=== PATIENT | male | born 1950 | race Caucasian/White ===

== ENCOUNTER 2016-10-28 15:34 | Inpatient (IN) | payer MEDICARE, OTHER ==
[2016-10-28] MEDS ORDERED: IPRATROPIUM 0.5 MG/2.5 ML NEBU INHALATION STA (15:49)
[2016-10-28] MEDS ORDERED: ALBUTEROL NEBULIZED 2.5 MG/3 ML INHALATION STA (15:49)
[2016-10-28] MEDS ORDERED: TERBUTALINE 1 MG/ML VIAL SQ STA (15:59)
[2016-10-28] MEDS ORDERED: methylPREDNISolone SOD SUCCI 125 MG/2 ML VIAL IV STA (15:59)
--- NOTE | 2016-10-28 16:07 | ED ---
General Adult HPI - General Chief complaint: Shortness of Breath Stated complaint: RICARDA/Fever-sent by Time Seen by Provider: 10/28/16 15:50 Source: patient, family, RN notes reviewed, old records reviewed Mode of arrival: wheelchair Limitations: no limitations - History of Present Illness Initial comments: Chief complaint and history of present illness 14-year-old male sent emergency room from [facility] because of severe shortness of breath. It isn't progressively worse for the past 4 days. The patient's on-again off-again problems including pneumonia several times over the past 2 months. Patient complains of pain to the left lower lateral flank area. - Related Data Home Medications Medication Instructions Recorded Confirmed Albuterol Nebulized [Ventolin 2.5 mg INHALATION RT-Q4H PRN 10/28/16 10/28/16 Nebulized] Amitriptyline HCl [Elavil] 25 mg PO HS 10/28/16 10/28/16 Budesonide/Formoterol Fumarate 2 puff INHALATION RT-BID 10/28/16 10/28/16 [Symbicort 160-4.5 Mcg Inhaler] Fluticasone Nasal [place] [Flonase 1 spray EA NOSTRIL DAILY PRN 10/28/16 10/28/16 Nasal [place]] Gluc/[place]-MSM#1/C/Danyel/Naveed/Bor 1 tab PO DAILY 10/28/16 10/28/16 [Glucosamine-Chondroitin Tablet] HYDROcodone/APAP 10-325MG [[place] 2 tab PO TID PRN 10/28/16 10/28/16 10-325] Ipratropium/Albuterol Sulfate 1 puff INHALATION RT-QID PRN 10/28/16 10/28/16 [Combivent Respimat Inhaler] Levothyroxine Sodium [Synthroid] 200 mcg PO DAILY 10/28/16 10/28/16 Multivitamins, Thera [Multivitamin] 1 tab PO DAILY 10/28/16 10/28/16 [place]-3 Fatty Acids/Fish Oil [Fish 1 cap PO DAILY 10/28/16 10/28/16 Oil 1,000 mg Softgel] Omeprazole [PriLOSEC] 20 mg PO BID 10/28/16 10/28/16 Sertraline [Zoloft] 200 mg PO DAILY 10/28/16 10/28/16 amLODIPine [Norvasc] 5 mg PO DAILY 10/28/16 10/28/16 Allergies Allergy/AdvReac Type Severity Reaction Status Date / Time Sulfa (Sulfonamide Allergy Rash/Hives Verified 10/28/16 16:36 Antibiotics) tetracycline Allergy Anaphylaxis Verified 10/28/16 16:36 Review of Systems ROS Statement: Those systems with pertinent positive or pertinent negative responses have been documented in the HPI. Review of systems no complaint of headache or visual acuity changes no neck pain. He is short of breath breathing with pursed lips. Playing of pain to his left lower lateral chest area which started today. No abdominal pain no nausea no vomiting no neuro deficits. All systems reviewed. Past medical problems COPD, rheumatoid arthritis. Patient's ALLERGIES to sulfa. Family history not respiratory. Patient nonsmoker. Surgeries noncontributory at this time. ROS Other: All systems not noted in ROS Statement are negative. Past Medical History Past Medical History: COPD, Rheumatoid Arthritis (RA) History of Any Multi-Drug Resistant Organisms: None Reported Past Psychological History: No Psychological Hx Reported Smoking Status: Never smoker Past Alcohol Use History: None Reported Past Drug Use History: None Reported General Exam - General Exam Comments Initial Comments: General: The patient is awake and alert, in significant respiratory distress. Patient was given updrafts prior to leaving the [place] clinic earlier. Presents today with a low pulse ox. Breathing with pursed lips. Nonproductive cough. Denies fever at home. Extremely short of breath. Patient was immediately started on continuous updraft, given terbutaline subcu, IV steroids. Vital signs temp 99.5 pulse 11 respiratory rate 24 pulse ox 79% on room air. Up to 89% with O2. Blood pressure 123/66. Eye: Pupils are equal, round and reactive to light, extra-ocular movements are intact ; there is normal conjunctiva bilaterally. No signs of icterus. Ears, nose, mouth and throat: There are moist mucous membranes and no oral lesions. Neck: The neck is supple, there is no tenderness , no anterior cervical lymphadenopathy, no meningismus. No stiff neck. Cardiovascular: Tachycardic heart rate 101. No murmur, rub or gallop is appreciated. Respiratory: Presents short of breath, decreased air entry bilaterally. Faint wheezes appreciated. Updraft started immediately. Gastrointestinal: Soft, non-distended, non-tender abdomen without masses or organomegaly noted. There is no rebound or guarding present. No CVA tenderness. Bowel sounds are unremarkable. Back: Complains of pain to the left flank area. No evidence of any rash though early shingles was discussed. Musculoskeletal: Normal ROM, no tenderness, There is no pedal edema. There is no calf tenderness or swelling. Sensation intact. Neurological: CN II-XII intact, There are no obvious motor or sensory deficits. Coordination appears grossly intact. Speech is normal. Skin: Skin is warm and dry and no rashes or lesions are noted. Neurologically no focal or lateralizing findings Limitations: no limitations Course Vital Signs 10/28/16 10/28/16 10/28/16 15:37 15:51 16:06 Temperature 99.5 F Pulse Rate 101 H 105 H 107 H Respiratory 24 Rate Blood Pressure 123/66 O2 Sat by Pulse 79 L Oximetry 10/28/16 10/28/16 10/28/16 16:21 16:30 16:40 Temperature 98.2 F Pulse Rate 104 H 93 Respiratory 20 18 Rate Blood Pressure 141/76 O2 Sat by Pulse 96 Oximetry 10/28/16 10/28/16 17:09 17:37 Temperature 98.0 F Pulse Rate 111 H 108 H Respiratory 20 Rate Blood Pressure 121/66 O2 Sat by Pulse 92 L Oximetry EKG Findings - EKG Comments: EKG Findings:: EKG was done and reviewed at 1545 showing sinus tachycardia rate 104. No acute ST elevation no significant ischemic changes. CA interval is 146 QRS [address] QT [address] Coppola Medical Decision Making - Medical Decision Making Medical decision making; patient's white count is 9 hemoglobin 11 hematocrit of 36, INR 1.0, potassium 4.1, BUN 20 creatinine 0.89 with a GFR greater than 60. Glucose 118. X-ray of the chest was done AP and lateral view and reviewed by radiologist his impression is no evidence for infiltrate. No evidence for atelectasis. Heart size is stable. Mediastinal structures are stable and grossly unremarkable. No evidence for hilar prominence. Impression; no evidence for acute pulmonary disease. As read by Dr. Jj Patient was seen by Dr. grant, in emergency room patient be admitted his service with consultation from pulmonary services, Dr. Fried - Lab Data Result diagrams: 10/28/16 16:10 10/28/16 16:10 Lab Results 10/28/16 10/28/16 10/28/16 Range/Units 16:10 16:10 16:10 WBC 9.3 (3.8-10.6) k/uL RBC 3.84 L (4.30-5.90) m/uL Hgb 11.8 L (13.0-17.5) gm/dL Hct 36.0 L (39.0-53.0) % MCV 93.9 (80.0-100.0) fL MCH 30.8 (25.0-35.0) pg MCHC 32.8 (31.0-37.0) g/dL RDW 13.9 (11.5-15.5) % Plt Count 285 (150-450) k/uL Neutrophils % 75 % Lymphocytes % 15 % Monocytes % 7 % Eosinophils % 1 % Basophils % 1 % Neutrophils # 6.9 (1.3-7.7) k/uL Lymphocytes # 1.4 (1.0-4.8) k/uL Monocytes # 0.6 (0-1.0) k/uL Eosinophils # 0.1 (0-0.7) k/uL Basophils # 0.1 (0-0.2) k/uL PT (9.0-12.0) sec INR (<1.1) APTT (22.0-30.0) sec Sodium 136 L (137-145) mmol/L Potassium 4.1 (3.5-5.1) mmol/L Chloride 96 L (98-107) mmol/L Carbon Dioxide 27 (22-30) mmol/L Anion Gap 13 mmol/L BUN 20 (9-20) mg/dL Creatinine 0.89 (0.66-1.25) mg/dL Est GFR (MDRD) Af Amer >60 (>60 ml/min/1.73 sqM) Est GFR (MDRD) Non-Af >60 (>60 ml/min/1.73 sqM) Glucose 118 H (74-99) mg/dL Plasma Lactic Acid Prudencio 0.9 (0.7-2.0) mmol/L Calcium 9.0 (8.4-10.2) mg/dL Total Bilirubin 0.6 (0.2-1.3) mg/dL AST 23 (17-59) U/L ALT 30 (21-72) U/L Alkaline Phosphatase 67 (38-126) U/L Total Protein 7.2 (6.3-8.2) g/dL Albumin 4.1 (3.5-5.0) g/dL 10/28/16 Range/Units 16:10 WBC (3.8-10.6) k/uL RBC (4.30-5.90) m/uL Hgb (13.0-17.5) gm/dL Hct (39.0-53.0) % MCV (80.0-100.0) fL MCH (25.0-35.0) pg MCHC (31.0-37.0) g/dL RDW (11.5-15.5) % Plt Count (150-450) k/uL Neutrophils % % Lymphocytes % % Monocytes % % Eosinophils % % Basophils % % Neutrophils # (1.3-7.7) k/uL Lymphocytes # (1.0-4.8) k/uL Monocytes # (0-1.0) k/uL Eosinophils # (0-0.7) k/uL Basophils # (0-0.2) k/uL PT 10.4 (9.0-12.0) sec INR 1.0 (<1.1) APTT 26.1 (22.0-30.0) sec Sodium (137-145) mmol/L Potassium (3.5-5.1) mmol/L Chloride (98-107) mmol/L Carbon Dioxide (22-30) mmol/L Anion Gap mmol/L BUN (9-20) mg/dL Creatinine (0.66-1.25) mg/dL Est GFR (MDRD) Af Amer (>60 ml/min/1.73 sqM) Est GFR (MDRD) Non-Af (>60 ml/min/1.73 sqM) Glucose (74-99) mg/dL Plasma Lactic Acid Prudencio (0.7-2.0) mmol/L Calcium (8.4-10.2) mg/dL Total Bilirubin (0.2-1.3) mg/dL AST (17-59) U/L ALT (21-72) U/L Alkaline Phosphatase (38-126) U/L Total Protein (6.3-8.2) g/dL Albumin (3.5-5.0) g/dL Disposition Clinical Impression: Acute exacerbation of chronic obstructive pulmonary disease (COPD) Disposition: ADMITTED IP TO THIS HOSP Condition: Serious
[2016-10-28 16:19] LABS: Basophils # (A) 0.1 k/uL (0-0.2); Basophils % (A) 1 %; CH 31.6; CHCM 33.8; Eosinophils # (A) 0.1 k/uL (0-0.7); Eosinophils % (A) 1 %; HDW 3.14; HGB 11.8 gm/dL (13.0-17.5); Luc # (Auto) 0.13; Luc % (Auto) 1; Lymphocytes # (A) 1.4 k/uL (1.0-4.8); Lymphocytes % (A) 15 %; MCH 30.8 pg (25.0-35.0); MCHC 32.8 g/dL (31.0-37.0); MCV 93.9 fL (80.0-100.0); Monocytes # (A) 0.6 k/uL (0-1.0); Monocytes % (A) 7 %; Neutrophils # (A) 6.9 k/uL (1.3-7.7); Neutrophils % (A) 75 %; RBC 3.84 m/uL (4.30-5.90); RDW 13.9 % (11.5-15.5); WBC 9.3 k/uL (3.8-10.6); WBC (Perox) 9.91
[2016-10-28 16:26] LABS: ALT 30 U/L (21-72); AST 23 U/L (17-59); Alkaline Phosphatase 67 U/L (38-126); Anion Gap 13 mmol/L; Blood Urea Nitrogen 20 mg/dL (9-20); Carbon Dioxide 27 mmol/L (22-30); Chloride 96 mmol/L (98-107); Glucose 118 mg/dL (74-99); Non-African American GFR(MDRD) >60 (>60 ml/min/1.73 sqM); Potassium 4.1 mmol/L (3.5-5.1); Sodium 136 mmol/L (137-145); Total Bilirubin 0.6 mg/dL (0.2-1.3); Total Protein 7.2 g/dL (6.3-8.2)
[2016-10-28 16:30] LABS: Partial Thromboplastin Time 26.1 sec (22.0-30.0); Prothrombin Time 10.4 sec (9.0-12.0)
--- NOTE | 2016-10-28 17:46 | XR ---
EXAMINATION TYPE: XR chest 2V DATE OF EXAM: 10/28/2016 5:36 PM COMPARISON: 06/25/2014 HISTORY: Shortness of breath TECHNIQUE: Frontal and lateral views of the chest are obtained. FINDINGS: Scattered senescent parenchymal changes noted. Hyperinflation compatible with COPD. No evidence for infiltrate. No evidence for atelectasis. Heart size is stable. Mediastinal structures are stable and grossly unremarkable. No evidence for hilar prominence. Degenerative changes dorsal spine. IMPRESSION: 1. No evidence for acute pulmonary disease.
[2016-10-28] MEDS ORDERED: NALOXONE 0.4 MG/ML 1 ML VIAL IV PRN (18:38)
[2016-10-28] MEDS ORDERED: ACETAMINOPHEN TAB 325 MG TAB PO PRN (18:38)
[2016-10-28] MEDS ORDERED: FLUTICASONE 50MCG/SPRAY NASAL 16GM EA NOSTRIL PRN (18:43)
[2016-10-28] MEDS: HYDROcodone/APAP 10-325MG 1 EACH TAB PO PRN (19:06)
[2016-10-28] MEDS: SODIUM CHLORIDE 0.9% 1,000 ML IV SCH (19:07)
[2016-10-28 20:52] LABS: Appearance,Urine Clear (Clear); Bilirubin,Urine Negative (Negative); Glucose,Urine (UA) Negative (Negative); Ketones,Urine Trace (Negative); Leukocyte Esterase,Urine Negative (Negative); Nitrite,Urine Negative (Negative); Particle Count 942; Protein,Urine Trace (Negative); RBC,Urine 2 /hpf (0-5); Specific Gravity,Urine 1.006 (1.001-1.035); UA Billing (MACRO vs. MICRO) MICRO; Urobilinogen,Urine <2.0 mg/dL (<2.0); WBC,Urine <1 /hpf (0-5)
--- NOTE | 2016-10-28 22:24 | HP ---
DATE OF ADMISSION: 10/28/2016 Patient complaints of shortness of breath started about four days ago. The patient has been having ( ) episodes for a while. [facility] The patient was complaining of cough with yellowish sputum production. The patient denied any fever, chills. Denied any nausea, vomiting. The patient does use 2 liters of oxygen at home. The patient denied any dysuria nausea, the patient denied any nausea or vomiting. REVIEW OF SYSTEMS: CONSTITUTIONAL: No fever, no malaise, no fatigue. HEENT: No recent visual problems or hearing problems. Denied any sore throat. CARDIOVASCULAR: The patient denied any chest pain. The patient denied any orthopnea, PND, no palpitations, no syncope. PULMONARY: As described in history of present illness. GASTROINTESTINAL: No diarrhea, no nausea, no vomiting, no abdominal pain. Normoactive bowel sounds. NEUROLOGICAL: No headaches, no weakness, no numbness. HEMATOLOGICAL: Denies any bleeding or petechiae. GENITOURINARY: Denies any burning micturition, frequency, or urgency. MUSCULOSKELETAL/RHEUMATOLOGICAL: Denies any joint pain, swelling, or any muscle pain. ENDOCRINE: Denies any polyuria or polydipsia. The rest of the 14 point review of systems is negative. Home medications include: 1. ( ). 2. Budesonide. 3. Formoterol. 4. Hydrocodone/acetaminophen. 5. Levothyroxine. 6. Multivitamins. 7. ( ). 8. [place]-3 fatty acid. 9. Omeprazole. 10. Sertraline. 11. Amlodipine 5 mg. ALLERGIES: ALLERGIC TO SULFA DRUGS AND TETRACYCLINE. PAST MEDICAL HISTORY: Significant for rheumatoid arthritis, hypertension, chronic obstructive pulmonary disease, hypothyroidism. SOCIAL HISTORY: The patient does smoke. Patient only smoked one cigarette per day. Quit smoking last July 2016, since then he has been smoking one cigarette per day. Denied any alcohol abuse or any drug abuse. FAMILY HISTORY: Significant for hypertension. PHYSICAL EXAMINATION: VITAL SIGNS: Temperature 99.5, pulse of 105, respiratory rate of 24. Blood pressure is 123/66, saturating at 96% on 4 liters of O2 by nasal cannula. GENERAL: The patient is alert and oriented x3, not in any acute distress. Well developed, well nourished. HEENT: Pupils are round and equally reacting to light. EOMI. No scleral icterus. No conjunctival pallor. Normocephalic, atraumatic. No pharyngeal erythema. No thyromegaly. CARDIOVASCULAR: S1 and S2 present. No murmurs, rubs, or gallops. PULMONARY: Diffuse wheezing bilaterally. No crackles are appreciated. ( ) decreased air entry into bilateral lung payan. ABDOMEN: Soft, nontender, nondistended, normoactive bowel sounds. No palpable organomegaly. MUSCULOSKELETAL: No joint swelling or deformity. EXTREMITIES: No cyanosis, clubbing, or pedal edema. NEUROLOGICAL: Gross neurological examination did not reveal any focal deficits. SKIN: No rashes. LABORATORY DATA: CBC and comprehensive metabolic profile are abnormal for mildly low hemoglobin 11.8, no leukocytosis. Chest x-ray did not show any pneumonic process. ASSESSMENT AND PLAN: 1. Acute on chronic hypercapnic respiratory failure, secondary to chronic obstructive pulmonary disease exacerbation. The patient was started on ( ) treatment and I will start him on azithromycin for bronchitis. 2. Hypertension. Hold off on amlodipine because of his low normal blood pressures. 3. Hypothyroidism. 4. Depression. For above-mentioned chronic medical problems we will continue his home medications. Patient's primary care physician is Dr. Shashi Weller.
[2016-10-28] MEDS: AMITRIPTYLINE HCL 25 MG TAB PO SCH (22:37)
[2016-10-28] MEDS: AZITHROMYCIN 500 MG TAB PO SCH (22:37)
[2016-10-28] MEDS: SYMBICORT 160-4.5 MCG INHALER INHALATION SCH (23:15)
[2016-10-29] MEDS: methylPREDNISolone SOD SUCCI 125 MG/2 ML VIAL IV SCH ×5 (01:32→23:57)
[2016-10-29 03:00] VITALS: BMI 24.4
[2016-10-29] MEDS: LEVOTHYROXINE 100 MCG TAB PO SCH (06:26)
[2016-10-29 06:47] LABS: Glucose,Whole Blood 154 mg/dL (75-99)
[2016-10-29] MEDS: INSULIN LISPRO (humaLOG) 300 UNIT/3 ML VIAL SQ SCH ×4 (06:55→22:27)
[2016-10-29] MEDS: SERTRALINE 100 MG TAB PO SCH (07:42)
[2016-10-29] MEDS: IPRATROPIUM-ALBUTEROL 3 ML NEB INHALATION PRN ×2 (07:56→13:13)
[2016-10-29] MEDS: SYMBICORT 160-4.5 MCG INHALER INHALATION SCH ×2 (07:57→19:43)
[2016-10-29] MEDS: SODIUM CHLORIDE 0.9% 1,000 ML IV SCH ×2 (08:22→21:39)
[2016-10-29] MEDS ORDERED: amLODIPine 5 MG TAB PO SCH (09:00)
[2016-10-29] MEDS ORDERED: NON-FORMULARY DRUG (Gluc/Chon-Msm#1/C/Mang/Bos/Bor [Glucosamine-Chondroitin Tablet] 1 TAB) PO SCH (09:00)
[2016-10-29] MEDS ORDERED: PANTOPRAZOLE 40 MG/10 ML VIAL IV SCH (09:00)
[2016-10-29 12:15] LABS: Glucose,Whole Blood 118 mg/dL (75-99)
--- NOTE | 2016-10-29 14:22 | P.CNPUL ---
History of Present Illness Consult date: 10/29/16 Requesting physician: Jordan Rodriguez Reason for consult: dyspnea, COPD Chief complaint: Shortness of breath, cough, congestion History of present illness: This is a very pleasant 66-year-old gentleman who follows at the [facility] for his primary care needs. He has a history of oxygen dependent chronic obstructive pulmonary disease, gastroesophageal reflux disease, hypertension, hypothyroidism and rheumatoid arthritis. He did smoke for approximately 25 years but take quit in May 2016. He is maintained on Symbicort and albuterol in the outpatient setting. He had been having issues with shortness of breath, cough and congestion since around Thanksgiving time. He has been treated in the outpatient setting without significant improvement. He gets better for a while and then has a recurrence of this same loose productive cough. He was admitted here yesterday for the same. He is seen today in consultation on the selective care unit. He is awake and alert in no acute distress. His chest x-ray did not reveal any evidence of an acute pulmonary process. There is noted COPD. There is no leukocytosis. He has been afebrile. He is maintaining good O2 saturations in the mid 90s on room air. He states he is breathing easier today as compared to yesterday. He denies any chills or night sweats. He has a loose nonproductive cough. No hemoptysis. No recent weight loss. Review of Systems 14 point review of system was conducted. All negative other than as mentioned in HPI. Past Medical History Past Medical History: COPD, Hyperlipidemia, Rheumatoid Arthritis (RA) Additional Past Medical History / Comment(s): IBS (Aug 2016 diagnosed) History of Any Multi-Drug Resistant Organisms: None Reported Past Surgical History: Orthopedic Surgery Additional Past Surgical History / Comment(s): reconstruction of right ankle, carpal tunnel, shrapnel right leg Additional Past Anesthesia/Blood Transfusion Reaction / Comment(s): blood transfusion in [place] Past Psychological History: Anxiety, Depression, PTSD Smoking Status: Never smoker Past Alcohol Use History: None Reported Past Drug Use History: None Reported - Past Family History Father Family Medical History: No Reported History Medications and Allergies Home Medications Medication Instructions Recorded Confirmed Type Albuterol Nebulized [Ventolin 2.5 mg INHALATION RT-Q4H PRN 10/28/16 10/28/16 History Nebulized] Amitriptyline HCl [Elavil] 25 mg PO HS 10/28/16 10/28/16 History Budesonide/Formoterol Fumarate 2 puff INHALATION RT-BID 10/28/16 10/28/16 History [Symbicort 160-4.5 Mcg Inhaler] Fluticasone Nasal [place] [Flonase 1 spray EA NOSTRIL DAILY PRN 10/28/16 10/28/16 History Nasal [place]] Gluc/[place]-MSM#1/C/Danyel/Naveed/Bor 1 tab PO DAILY 10/28/16 10/28/16 History [Glucosamine-Chondroitin Tablet] HYDROcodone/APAP 10-325MG [[place] 2 tab PO TID PRN 10/28/16 10/28/16 History 10-325] Ipratropium/Albuterol Sulfate 1 puff INHALATION RT-QID PRN 10/28/16 10/28/16 History [Combivent Respimat Inhaler] Levothyroxine Sodium [Synthroid] 200 mcg PO DAILY 10/28/16 10/28/16 History Multivitamins, Thera [Multivitamin] 1 tab PO DAILY 10/28/16 10/28/16 History [place]-3 Fatty Acids/Fish Oil [Fish 1 cap PO DAILY 10/28/16 10/28/16 History Oil 1,000 mg Softgel] Omeprazole [PriLOSEC] 20 mg PO BID 10/28/16 10/28/16 History Sertraline [Zoloft] 200 mg PO DAILY 10/28/16 10/28/16 History amLODIPine [Norvasc] 5 mg PO DAILY 10/28/16 10/28/16 History Allergies Allergy/AdvReac Type Severity Reaction Status Date / Time Sulfa (Sulfonamide Allergy Rash/Hives Verified 10/28/16 16:36 Antibiotics) tetracycline Allergy Anaphylaxis Verified 10/28/16 16:36 Physical Exam Vitals: Vital Signs Temp Pulse Pulse Resp BP BP Pulse Ox 10/29/16 13:26 100 10/29/16 13:14 100 10/29/16 11:50 97.6 F 72 18 113/69 94 L 10/29/16 08:13 96 10/29/16 07:57 96 10/29/16 07:48 90 18 10/29/16 07:40 97 F L 90 18 114/80 93 L 10/29/16 02:42 97.0 F L 82 22 119/79 95 10/29/16 01:31 97.0 F L 73 18 130/83 95 10/28/16 22:38 75 18 117/70 94 L 10/28/16 20:40 97.6 F 89 18 109/60 93 L 10/28/16 19:09 92 18 110/59 92 L 10/28/16 18:45 97.9 F 92 18 113/65 93 L Intake and Output 10/28/16 10/29/16 10/29/16 22:59 06:59 14:59 Intake Total 240 Balance 240 Intake: Oral 240 Other: Weight 70.7 kg 70.7 kg Patient Weight 10/30/16 06:59 Weight 70.7 kg GENERAL EXAM: Alert, active, comfortable in no apparent distress. HEAD: Normocephalic. EYES: Normal reaction of pupils, equal size. NOSE: Clear with pink turbinates. THROAT: No erythema or exudates. NECK: No masses, no JVD. CHEST: No chest wall deformity. LUNGS: Equal air entry with faint end expiratory wheeze. Diminished. CVS: S1 and S2 normal with no audible murmurs, regular rhythm. ABDOMEN: No hepatosplenomegaly, normal bowel sounds, no guarding or rigidity. SPINE: No scoliosis or deformity SKIN: No rashes CENTRAL NERVOUS SYSTEM: No focal deficits, tone is normal in all 4 extremities. Extremities: There is no significant peripheral edema. No clubbing, no cyanosis. Peripheral pulses are intact. Results - Laboratory Findings CBC and BMP: 10/28/16 16:10 10/28/16 16:10 PT/INR, D-dimer PT 10.4 sec (9.0-12.0) 10/28/16 16:10 INR 1.0 (<1.1) 10/28/16 16:10 Abnormal lab findings: Abnormal Labs 10/28/16 10/29/16 10/29/16 20:36 06:46 12:14 POC Glucose (mg/dL) 154 H 118 H Urine Protein Trace H Urine Ketones Trace H Urine Blood Trace H - Diagnostic Findings Chest x-ray: image reviewed (No acute pulmonary process.) Assessment and Plan Plan: Impression: #1 Acute exacerbation of oxygen dependent chronic obstructive pulmonary disease , complicated by purulent tracheobronchitis. No clear evidence of pneumonia. #2 Chronic nicotine addiction for approximately 25 years at 1 pack per day however quit in May 2016. #3 Rheumatoid arthritis. #4 Hypothyroidism. #5 Hypertension. #6 Gastroesophageal reflux disease. #7 History of depression. Plan: The patient was seen and evaluated by Dr. Medina. His chest x-ray and labs were reviewed. He is being treated for an acute exacerbation of his COPD. We will continue with his bronchodilators, Symbicort and IV Solu-Medrol. He is on empiric antibiotics in the form of azithromycin. We will increase his activity as tolerated. We'll continue to follow make further recommendations based on his clinical status.
[2016-10-29] MEDS: HYDROcodone/APAP 10-325MG 1 EACH TAB PO PRN (14:49)
[2016-10-29 17:21] LABS: Glucose,Whole Blood 168 mg/dL (75-99)
[2016-10-29 21:31] LABS: Glucose,Whole Blood 122 mg/dL (75-99)
[2016-10-29] MEDS: guaiFENesin 600 MG TABLET.ER PO SCH (22:31)
[2016-10-29] MEDS: AMITRIPTYLINE HCL 25 MG TAB PO SCH (22:31)
[2016-10-29] MEDS: AZITHROMYCIN 500 MG TAB PO SCH (22:32)
[2016-10-30] MEDS: HYDROcodone/APAP 10-325MG 1 EACH TAB PO PRN ×3 (00:01→19:34)
[2016-10-30] MEDS: LEVOTHYROXINE 100 MCG TAB PO SCH (05:53)
[2016-10-30] MEDS: methylPREDNISolone SOD SUCCI 125 MG/2 ML VIAL IV SCH ×4 (05:53→23:29)
[2016-10-30 07:53] LABS: Glucose,Whole Blood 121 mg/dL (75-99)
[2016-10-30] MEDS: INSULIN LISPRO (humaLOG) 300 UNIT/3 ML VIAL SQ SCH ×4 (08:05→21:32)
[2016-10-30] MEDS: SERTRALINE 100 MG TAB PO SCH (08:06)
[2016-10-30] MEDS: guaiFENesin 600 MG TABLET.ER PO SCH ×2 (08:06→20:00)
[2016-10-30] MEDS: PANTOPRAZOLE 40 MG TABLET PO SCH (08:06)
--- NOTE | 2016-10-30 08:17 | CT ---
EXAMINATION TYPE: CT chest wo con DATE OF EXAM: 10/30/2016 7:50 AM COMPARISON: NONE HISTORY: COPD and ILD CT DLP: 605 mGycm Automated exposure control for dose reduction was used. FINDINGS: There are moderately severe emphysematous changes throughout the lungs. There is a spiculated density in the inferior aspect of the right middle lobe which may represent some scarring. No definite paren chymal mass is seen. No significant interstitial lung disease is seen. There is no significant axillary, mediastinal or hilar adenopathy. There is no pleural or pericardial fluid. There is a small hiatal hernia present. There is atheromatous calcification of the visualized arterial tree. There is mild hypertrophic spondylosis within the upper lumbar spine. IMPRESSION: 1. MODERATE EMPHYSEMATOUS CHANGE. 2. SPICULATED, 3.2 X 1.7 CM MASS IN THE ANTERIOR ASPECT OF THE RIGHT MIDDLE LOBE MAY REPRESENT SOME S CARRING. MALIGNANCY IS NOT EXCLUDED. A PET/CT SCAN MAY BE WORTHWHILE. 3. SMALL HIATAL HERNIA. 4. MILD DEGENERATIVE CHANGE IN THE UPPER LUMBAR SPINE.
[2016-10-30 08:50] LABS: Basophils % (A) 0 %; CH 30.9; CHCM 32.5; Eosinophils % (A) 0 %; HCT 35.7 % (39.0-53.0); HDW 3.22; HGB 11.1 gm/dL (13.0-17.5); Luc # (Auto) 0.06; Luc % (Auto) 1; Lymphocytes # (A) 0.6 k/uL (1.0-4.8); Lymphocytes % (A) 8 %; MCH 29.7 pg (25.0-35.0); MCV 95.6 fL (80.0-100.0); Mean Platelet Volume 7.1; Monocytes # (A) 0.3 k/uL (0-1.0); Monocytes % (A) 5 %; Neutrophils # (A) 6.4 k/uL (1.3-7.7); Neutrophils % (A) 86 %; RBC 3.73 m/uL (4.30-5.90); WBC 7.4 k/uL (3.8-10.6); WBC (Perox) 7.31
[2016-10-30 09:23] LABS: Anion Gap 10 mmol/L; Blood Urea Nitrogen 19 mg/dL (9-20); Calcium 9.1 mg/dL (8.4-10.2); Carbon Dioxide 28 mmol/L (22-30); Chloride 105 mmol/L (98-107); Glucose 127 mg/dL (74-99); Non-African American GFR(MDRD) >60 (>60 ml/min/1.73 sqM); Potassium 4.6 mmol/L (3.5-5.1); Sodium 143 mmol/L (137-145)
[2016-10-30] MEDS: SYMBICORT 160-4.5 MCG INHALER INHALATION SCH ×2 (09:26→20:16)
--- NOTE | 2016-10-30 11:34 | PN ---
DATE OF SERVICE: 10/29/2016 INTERVAL HISTORY: Mr. Rendon is a 66-year-old male with a known history of COPD on home oxygen dependent, GERD, hypertension, hypothyroidism, and rheumatoid arthritis and previous history of smoking admitted to the hospital with worsening short of breath. Currently being treated for acute COPD exacerbation. Patient says that his breathing is much better today, not at baseline. No fever. No chills. No chest pain. No worsening short of breath. No acute overnight issues. REVIEW OF SYSTEMS: CONSTITUTIONAL: No fever. No chills. RESPIRATORY: No cough or sputum production. CARDIOVASCULAR: No chest pain or shortness of breath. ABDOMEN: No nausea, vomiting or abdominal pain. GENITOURINARY: Negative. ENDOCRINE: Negative. PSYCHIATRY: Negative. SKIN: Negative. All other 14-point review of systems negative except the above. Current medications include Tylenol, [place] 10, DuoNeb, Elavil, Zithromax, Symbicort, Flonase, Mucinex, Humalog, Synthroid, Solu-Medrol, Protonix, Zoloft and normal saline at 80 mL per hour. PHYSICAL EXAMINATION: A 66-year-old male lying in bed. Awake, alert, oriented x3. He appears to be in no apparent distress. VITALS: Blood pressure is 113/67, pulse is 89, respirations 20, temperature afebrile, pulse ox 93% on 3 L nasal cannula. HEENT: Atraumatic, normocephalic. Neck is supple. No JVD. CVS EXAM: S1, S2 heard. No murmurs, no gallop. LUNGS: Bilateral air entry is present. Might expiratory wheezing positive. Diminished breath sounds basally. Nonlabored breathing. No crackles. ABDOMEN: Soft, nontender. Bowel sounds are present. SUPPORT TEACHER: Awake, alert, oriented x3, able to move all her extremities. EXTREMITIES: No edema. Pulses palpable bilaterally. No clubbing or cyanosis. PSYCHIATRIC: Cooperative. LABORATORY DATA: Reviewed from yesterday. IMPRESSION: 1. Acute on chronic hypercapnic respiratory failure secondary to chronic obstructive pulmonary disease exacerbation. 2. Acute tracheobronchitis. 3. History of nicotine addiction, quit May 2016. 4. Hypothyroidism. 5. Hypertension. 6. Rheumatoid arthritis. 7. Gastroesophageal reflux disease. 8. History of depression. 9. Deep venous thrombosis prophylaxis. DISCUSSION AND PLAN: Patient will be continued on with Solu-Medrol, breathing treatments and antibiotics in the form of azithromycin. Pulmonary is following this patient. Will hold IV fluids and recheck labs in the morning. Continue with the current management and further recommendations based on clinical course. Anticipate discharge in the next 24 hours.
[2016-10-30 12:25] LABS: Glucose,Whole Blood 141 mg/dL (75-99)
--- NOTE | 2016-10-30 15:52 | P.PN ---
Subjective This is a very pleasant 66-year-old gentleman who follows at the [facility] for his primary care needs. He has a history of oxygen dependent chronic obstructive pulmonary disease, gastroesophageal reflux disease, hypertension, hypothyroidism and rheumatoid arthritis. He did smoke for approximately 25 years but take quit in May 2016. He is maintained on Symbicort and albuterol in the outpatient setting. He had been having issues with shortness of breath, cough and congestion since around Thanksgiving time. He has been treated in the outpatient setting without significant improvement. He gets better for a while and then has a recurrence of this same loose productive cough. He was admitted here yesterday for the same. He is seen today in consultation on the selective care unit. He is awake and alert in no acute distress. His chest x-ray did not reveal any evidence of an acute pulmonary process. There is noted COPD. The patient is seen again today 10/30/2016 in follow-up on the regular medical floor. He is awake and alert in no acute distress. He is breathing easier today as compared to yesterday. Still has a loose productive cough. Culture is pending. No chills or night sweats. He remains afebrile. Maintaining good O2 saturations in the mid 90s on 3 L/m per nasal cannula. Objective - Vital Signs Vital signs: Vital Signs Temp 96.3 F L 10/30/16 07:00 Pulse 82 10/30/16 07:00 Resp 20 10/30/16 07:00 BP 160/84 10/30/16 07:00 Pulse Ox 93 L 10/30/16 07:00 Intake & Output 10/29/16 10/30/16 10/30/16 18:59 06:59 18:59 Intake Total 880 100 Balance 880 100 Weight 70.7 kg Intake: IV 640 Sodium Chloride 0.9% 1, 640 000 ml @ 80 mls/hr IV . [id number] JESS Rx#:[id number] Oral 240 100 Other: Voiding Method Toilet # Voids 1 - Exam GENERAL EXAM: Alert, comfortable in no apparent distress. HEAD: Normocephalic. EYES: Normal reaction of pupils, equal size. NOSE: Clear with pink turbinates. THROAT: No erythema or exudates. NECK: No masses, no JVD. CHEST: No chest wall deformity. LUNGS: Equal air entry with few scattered rhonchi. Diminished. CVS: S1 and S2 normal with no audible murmurs, regular rhythm. ABDOMEN: No hepatosplenomegaly, normal bowel sounds, no guarding or rigidity. SPINE: No scoliosis or deformity SKIN: No rashes CENTRAL NERVOUS SYSTEM: No focal deficits, tone is normal in all 4 extremities. Extremities: There is no significant peripheral edema. No clubbing, no cyanosis. Peripheral pulses are intact. - Labs CBC & Chem 7: 10/30/16 08:14 10/30/16 08:14 Labs: Abnormal Lab Results - Last 24 Hours (Table) 10/29/16 10/29/16 10/30/16 Range/Units 17:20 21:29 07:52 RBC (4.30-5.90) m/uL Hgb (13.0-17.5) gm/dL Hct (39.0-53.0) % Lymphocytes # (1.0-4.8) k/uL Creatinine (0.66-1.25) mg/dL Glucose (74-99) mg/dL POC Glucose (mg/dL) 168 H 122 H 121 H (75-99) mg/dL 10/30/16 10/30/16 10/30/16 Range/Units 08:14 08:14 12:21 RBC 3.73 L (4.30-5.90) m/uL Hgb 11.1 L (13.0-17.5) gm/dL Hct 35.7 L (39.0-53.0) % Lymphocytes # 0.6 L (1.0-4.8) k/uL Creatinine 0.60 L (0.66-1.25) mg/dL Glucose 127 H (74-99) mg/dL POC Glucose (mg/dL) 141 H (75-99) mg/dL Microbiology - Last 24 Hours (Table) 10/29/16 22:00 Gram Stain - Preliminary Sputum 10/28/16 20:36 Urine Culture - Final Urine,Voided Assessment and Plan Plan: Impression: #1 Acute exacerbation of oxygen dependent chronic obstructive pulmonary disease , complicated by purulent tracheobronchitis. Sputum culture pending. #2 Chronic nicotine addiction for approximately 25 years at 1 pack per day however quit in May 2016. #3 Rheumatoid arthritis. #4 Hypothyroidism. #5 Hypertension. #6 Gastroesophageal reflux disease. #7 History of depression. Plan: The patient was seen and evaluated by Dr. Medina. We will continue with his bronchodilators, Symbicort and IV Solu-Medrol. He is on empiric antibiotics in the form of azithromycin. We will increase his activity as tolerated. We'll continue to follow make further recommendations based on his clinical status.
[2016-10-30 17:43] LABS: Glucose,Whole Blood 112 mg/dL (75-99)
[2016-10-30] MEDS ORDERED: PNEUMOCOCCAL VACC-PNEUMOVAX 23 25 MCG/0.5 ML VIAL IM ONE (18:09)
[2016-10-30] MEDS: AZITHROMYCIN 500 MG TAB PO SCH (20:00)
[2016-10-30] MEDS: AMITRIPTYLINE HCL 25 MG TAB PO SCH (20:00)
[2016-10-30 21:25] LABS: Glucose,Whole Blood 157 mg/dL (75-99)
[2016-10-31] MEDS: methylPREDNISolone SOD SUCCI 125 MG/2 ML VIAL IV SCH ×4 (05:33→23:26)
[2016-10-31] MEDS: LEVOTHYROXINE 100 MCG TAB PO SCH (05:34)
[2016-10-31 07:47] LABS: Glucose,Whole Blood 108 mg/dL (75-99)
[2016-10-31] MEDS: PANTOPRAZOLE 40 MG TABLET PO SCH (08:18)
[2016-10-31] MEDS: guaiFENesin 600 MG TABLET.ER PO SCH ×2 (08:18→22:06)
[2016-10-31] MEDS: HYDROcodone/APAP 10-325MG 1 EACH TAB PO PRN ×2 (08:18→18:03)
[2016-10-31] MEDS: SERTRALINE 100 MG TAB PO SCH (08:18)
[2016-10-31] MEDS: SYMBICORT 160-4.5 MCG INHALER INHALATION SCH ×2 (08:21→20:29)
[2016-10-31] MEDS: INSULIN LISPRO (humaLOG) 300 UNIT/3 ML VIAL SQ SCH ×4 (09:53→22:06)
--- NOTE | 2016-10-31 10:16 | PN ---
DATE OF SERVICE: 10/30/2016 INTERVAL HISTORY: Mr. Rendon is a 66 -year-old male with known history of COPD, on home oxygen, GERD, hypertension, hypothyroidism, and rheumatoid arthritis and previous history of smoking admitted to the hospital with worsening shortness of breath, currently being treated for acute COPD exacerbation. The patient breathing status is slightly improved today. Otherwise, still having cough with congestion in the chest. Saturating well on nasal cannula. No fever. No chills. No acute overnight issues. CT of the chest showed spiculated 3.2 by 1.7 cm mass in the anterior aspect of the right middle lobe, ( ) scarring. ( ) not excluded. Otherwise, no fever. No chills. No acute overnight issues. RESPIRATORY: No cough or sputum production. CARDIOVASCULAR: No chest pain or short of breath. ABDOMEN: No nausea, vomiting. No abdominal pain. GENITOURINARY: Negative. ENDOCRINE: Negative. PSYCHIATRIC: Negative. SKIN: Negative. All other fourteen-point review of systems negative except as above. CURRENT MEDICATIONS: Reviewed. PHYSICAL EXAMINATION: A 66-year-old male lying in bed comfortably. Awake, alert, oriented, x3. Appears to be in no apparent distress. VITALS: Blood pressure is 140/82, pulse is 80, respiration 19, temperature afebrile, pulse ox 95% on 3 L nasal cannula. HEENT: Atraumatic, normocephalic. Neck is supple. No JVD. CARDIOVASCULAR: S1, S2 heard. No murmurs, no gallop. LUNGS: Bilateral diminished air entry. Expiratory wheezing positive and rhonchi positive. Nonlabored breathing. ABDOMEN: Soft, nontender. Bowel sounds present. CENTRAL NERVOUS SYSTEM: Awake, alert and oriented x3. No focal neurologic deficits. Cranial nerves grossly intact. EXTREMITIES: No edema. Pulses are palpable bilaterally. No clubbing or cyanosis. PSYCHIATRY: Cooperative. LABORATORY DATA: WBC 7.4, hemoglobin 11.1, platelets 399. Sodium 143, potassium 4.6, chloride 105, bicarb is 28. BUN 19, creatinine 0.6, calcium 9.1. IMPRESSION: 1. Acute on chronic hypercapnic respiratory failure secondary to chronic obstructive pulmonary disease exacerbation. 2. Acute chronic obstructive pulmonary disease exacerbation. 3. Acute tracheobronchitis. 4. History of nicotine addiction, quit in ( ) 2015. 5. Hypothyroidism. 6. Hypertension. 7. Rheumatoid arthritis. 8. Gastroesophageal reflux disease. 9. History of depression. 10. Right middle lobe spiculated mass. 11. Deep venous thrombosis prophylaxis. DISCUSSION AND PLAN: Continue with Solu-Medrol. Continue with antibiotics in the form of Azithromycin. Continue the breathing treatments and hold IV fluids. Follow up closely. Further recommendations based on the clinical course. Pulmonary is following this patient.
[2016-10-31] MEDS: IPRATROPIUM-ALBUTEROL 3 ML NEB INHALATION PRN ×2 (11:37→20:29)
[2016-10-31 11:47] LABS: Glucose,Whole Blood 122 mg/dL (75-99)
--- NOTE | 2016-10-31 13:50 | P.PN ---
Subjective This is a very pleasant 66-year-old gentleman who follows at the [facility] for his primary care needs. He has a history of oxygen dependent chronic obstructive pulmonary disease, gastroesophageal reflux disease, hypertension, hypothyroidism and rheumatoid arthritis. He did smoke for approximately 25 years but take quit in May 2016. He is maintained on Symbicort and albuterol in the outpatient setting. He had been having issues with shortness of breath, cough and congestion since around Thanksgiving time. He has been treated in the outpatient setting without significant improvement. He gets better for a while and then has a recurrence of this same loose productive cough. He was admitted here yesterday for the same. He is seen today in consultation on the selective care unit. He is awake and alert in no acute distress. His chest x-ray did not reveal any evidence of an acute pulmonary process. There is noted COPD. The patient is seen again today 10/31/2016 in follow-up on the regular medical floor. His computed tomography scan of the chest revealed evidence of moderate emphysema along with a spiculated 3.2 x 1.7 cm mass in the anterior aspect of the right middle lobe which could be flat scarring. Malignancy is not totally excluded. His sputum is positive for Streptococcus pneumoniae and blood culture reveals no growth to date. Is currently afebrile. He is maintaining good O2 saturations in the mid 90s on 3 L/m per nasal cannula. Objective - Vital Signs Vital signs: Vital Signs Temp 96.7 F L 10/31/16 07:00 Pulse 88 10/31/16 11:50 Resp 20 10/31/16 07:00 BP 128/97 10/31/16 07:00 Pulse Ox 96 10/31/16 08:22 Intake & Output 10/30/16 10/31/16 10/31/16 18:59 06:59 18:59 Intake Total 100 Balance 100 Intake: Oral 100 Other: Voiding Method Toilet # Voids 4 2 - Exam GENERAL EXAM: Alert, comfortable in no apparent distress. HEAD: Normocephalic. EYES: Normal reaction of pupils, equal size. NOSE: Clear with pink turbinates. THROAT: No erythema or exudates. NECK: No masses, no JVD. CHEST: No chest wall deformity. LUNGS: Equal air entry with few scattered rhonchi. Diminished. CVS: S1 and S2 normal with no audible murmurs, regular rhythm. ABDOMEN: No hepatosplenomegaly, normal bowel sounds, no guarding or rigidity. SPINE: No scoliosis or deformity SKIN: No rashes CENTRAL NERVOUS SYSTEM: No focal deficits, tone is normal in all 4 extremities. Extremities: There is no significant peripheral edema. No clubbing, no cyanosis. Peripheral pulses are intact. - Labs CBC & Chem 7: 10/30/16 08:14 10/30/16 08:14 Labs: Abnormal Lab Results - Last 24 Hours (Table) 10/30/16 10/30/16 10/31/16 Range/Units 17:41 21: 07:38 POC Glucose (mg/dL) 112 H 157 H 108 H (75-99) mg/dL 10/31/16 Range/Units 11:45 POC Glucose (mg/dL) 122 H (75-99) mg/dL Microbiology - Last 24 Hours (Table) 10/29/16 22:00 Gram Stain - Preliminary Sputum Sputum Culture - Preliminary Streptococcus pneumoniae Assessment and Plan Plan: Impression: #1 Acute exacerbation of oxygen dependent chronic obstructive pulmonary disease , complicated by Streptococcus pneumoniae. #2 Chronic nicotine addiction for approximately 25 years at 1 pack per day however quit in May 2016. Computed tomography scan of the chest reveals a 3.2 x 1.7 cm mass in the anterior aspect of the right middle lobe. This could represent scarring however malignancy is not totally excluded. #3 Rheumatoid arthritis. #4 Hypothyroidism. #5 Hypertension. #6 Gastroesophageal reflux disease. #7 History of depression. Plan: The patient was seen and evaluated by Dr. Medina. The CT of the chest was reviewed. Currently he is not a good candidate for bronchoscopy with biopsy. He may benefit from a PET scan in the outpatient setting. We will continue with his bronchodilators, Symbicort and IV Solu-Medrol. He is on empiric antibiotics in the form of azithromycin. We will increase his activity as tolerated. We'll continue to follow make further recommendations based on his clinical status.
[2016-10-31 16:51] LABS: Glucose,Whole Blood 109 mg/dL (75-99)
[2016-10-31 21:45] LABS: Glucose,Whole Blood 247 mg/dL (75-99)
[2016-10-31 21:45] LABS: Glucose,Whole Blood 241 mg/dL (75-99)
[2016-10-31 21:45] LABS: Glucose,Whole Blood 235 mg/dL (75-99)
[2016-10-31] MEDS: AMITRIPTYLINE HCL 25 MG TAB PO SCH (22:05)
[2016-10-31] MEDS: AZITHROMYCIN 500 MG TAB PO SCH (22:05)
[2016-11-01] MEDS: LEVOTHYROXINE 100 MCG TAB PO SCH (05:56)
[2016-11-01] MEDS: methylPREDNISolone SOD SUCCI 125 MG/2 ML VIAL IV SCH ×3 (05:56→18:11)
[2016-11-01] MEDS: HYDROcodone/APAP 10-325MG 1 EACH TAB PO PRN ×2 (06:20→15:34)
[2016-11-01 07:58] LABS: Glucose,Whole Blood 103 mg/dL (75-99)
[2016-11-01] MEDS: INSULIN LISPRO (humaLOG) 300 UNIT/3 ML VIAL SQ SCH ×4 (08:23→21:46)
[2016-11-01] MEDS: SERTRALINE 100 MG TAB PO SCH (08:26)
[2016-11-01] MEDS: PANTOPRAZOLE 40 MG TABLET PO SCH (08:26)
[2016-11-01] MEDS: guaiFENesin 600 MG TABLET.ER PO SCH ×2 (08:26→21:46)
[2016-11-01] MEDS: SYMBICORT 160-4.5 MCG INHALER INHALATION SCH ×2 (08:32→19:28)
[2016-11-01] MEDS: IPRATROPIUM-ALBUTEROL 3 ML NEB INHALATION PRN ×3 (08:32→15:44)
[2016-11-01 11:53] LABS: Glucose,Whole Blood 139 mg/dL (75-99)
--- NOTE | 2016-11-01 13:07 | P.PN ---
Subjective Principal diagnosis: Acute exacerbation of COPD This is a very pleasant 66-year-old gentleman who follows at the [facility] for his primary care needs. He has a history of oxygen dependent chronic obstructive pulmonary disease, gastroesophageal reflux disease, hypertension, hypothyroidism and rheumatoid arthritis. He did smoke for approximately 25 years but take quit in May 2016. He is maintained on Symbicort and albuterol in the outpatient setting. He had been having issues with shortness of breath, cough and congestion since around Thanksgiving time. He has been treated in the outpatient setting without significant improvement. He gets better for a while and then has a recurrence of this same loose productive cough. He was admitted here yesterday for the same. He is seen today in consultation on the selective care unit. He is awake and alert in no acute distress. His chest x-ray did not reveal any evidence of an acute pulmonary process. There is noted COPD. The patient is seen again today 10/31/2016 in follow-up on the regular medical floor. His computed tomography scan of the chest revealed evidence of moderate emphysema along with a spiculated 3.2 x 1.7 cm mass in the anterior aspect of the right middle lobe which could be scarring. Patient was made aware of the findings today, and I told him that he is not a good candidate for bronchoscopy and biopsy. He is also not a good candidate for any surgical intervention, hence it is best to monitor this abnormality and repeat CT of the chest in 4 months. Malignancy is not totally excluded. His sputum is positive for Streptococcus pneumoniae and blood culture reveals no growth to date. Is currently afebrile. He is maintaining good O2 saturations in the mid 90s on 3 L /m per nasal cannula. Patient continues to have cough and wheezing and shortness of breath intermittently. Reevaluated today on 11/01/2016, patient continues to have cough wheezing shortness of breath, I discussed with him today the fact that he had positive sputum cultures for Streptococcus pneumonia, and I went ahead and added Rocephin to his Zithromax. I also explained to him the findings on the CT of the chest showing the right middle lobe spiculated lesion, it is not clear what with that the present, of course the differential diagnoses includes postinflammatory changes and/or malignancy. However the patient is not a good candidate for any intervention including bronchoscopy or surgery. And it is best to monitor this abnormality and have repeat CT of the chest in 4 months. Objective - Vital Signs Vital signs: Vital Signs Temp 97.6 F 11/01/16 07:00 Pulse 96 11/01/16 11:57 Resp 18 11/01/16 07:00 BP 139/81 11/01/16 07:00 Pulse Ox 96 11/01/16 08:34 Intake & Output 10/31/16 11/01/16 11/01/16 18:59 06:59 18:59 Other: # Voids 3 1 - Exam GENERAL EXAM: Alert, comfortable in no apparent distress. HEAD: Normocephalic. EYES: Normal reaction of pupils, equal size. NOSE: Clear with pink turbinates. THROAT: No erythema or exudates. NECK: No masses, no JVD. CHEST: No chest wall deformity. LUNGS: Equal air entry with few scattered rhonchi. Diminished. CVS: S1 and S2 normal with no audible murmurs, regular rhythm. ABDOMEN: No hepatosplenomegaly, normal bowel sounds, no guarding or rigidity. SPINE: No scoliosis or deformity SKIN: No rashes CENTRAL NERVOUS SYSTEM: No focal deficits, tone is normal in all 4 extremities. Extremities: There is no significant peripheral edema. No clubbing, no cyanosis. Peripheral pulses are intact. - Labs CBC & Chem 7: 10/30/16 08:14 10/30/16 08:14 Labs: Abnormal Lab Results - Last 24 Hours (Table) 10/31/16 10/31/16 10/31/16 Range/Units 16:49 21:34 21:35 POC Glucose (mg/dL) 109 H 241 H 247 H (75-99) mg/dL 10/31/16 11/01/16 11/01/16 Range/Units 21:37 07:57 11:52 POC Glucose (mg/dL) 235 H 103 H 139 H (75-99) mg/dL Microbiology - Last 24 Hours (Table) 10/31/16 08:26 Gram Stain - Preliminary Sputum Sputum Culture - Preliminary Streptococcus pneumoniae 10/29/16 22:00 Gram Stain - Final Sputum Sputum Culture - Final Streptococcus pneumoniae Assessment and Plan Plan: #1 Acute exacerbation of oxygen dependent chronic obstructive pulmonary disease , complicated by Streptococcus pneumoniae. #2 Chronic nicotine addiction for approximately 25 years at 1 pack per day however quit in May 2016. Computed tomography scan of the chest reveals a 3.2 x 1.7 cm mass in the anterior aspect of the right middle lobe. This could represent scarring however malignancy is not totally excluded. Will need to be monitored and have repeat CT of the chest in the next few months. #3 Rheumatoid arthritis. #4 Hypothyroidism. #5 Hypertension. #6 Gastroesophageal reflux disease. #7 History of depression. Recommendation: Patient was made aware of the findings on the CT of the chest, he was made aware that he is not ready for discharge planning, and we'll continue present course of bronchodilators, added Rocephin today, and we'll continue to follow. Time with Patient: Less than 30
[2016-11-01] MEDS: cefTRIAXone 2,000 MG in SODIUM CHLORIDE 0.9% 100 ML IVPB SCH (15:27)
[2016-11-01 17:01] LABS: Glucose,Whole Blood 137 mg/dL (75-99)
[2016-11-01 21:46] LABS: Glucose,Whole Blood 118 mg/dL (75-99)
[2016-11-01] MEDS: AZITHROMYCIN 500 MG TAB PO SCH (21:46)
[2016-11-01] MEDS: AMITRIPTYLINE HCL 25 MG TAB PO SCH (21:46)
[2016-11-02] MEDS: HYDROcodone/APAP 10-325MG 1 EACH TAB PO PRN ×3 (00:41→21:11)
[2016-11-02] MEDS: methylPREDNISolone SOD SUCCI 125 MG/2 ML VIAL IV SCH ×4 (00:42→18:39)
[2016-11-02] MEDS: LEVOTHYROXINE 100 MCG TAB PO SCH (06:24)
[2016-11-02] MEDS: IPRATROPIUM-ALBUTEROL 3 ML NEB INHALATION PRN ×5 (08:03→19:50)
[2016-11-02 08:04] LABS: Glucose,Whole Blood 116 mg/dL (75-99)
[2016-11-02] MEDS: SYMBICORT 160-4.5 MCG INHALER INHALATION SCH (08:05)
[2016-11-02] MEDS: guaiFENesin 600 MG TABLET.ER PO SCH ×2 (08:47→20:18)
[2016-11-02] MEDS: PANTOPRAZOLE 40 MG TABLET PO SCH (08:48)
[2016-11-02] MEDS: INSULIN LISPRO (humaLOG) 300 UNIT/3 ML VIAL SQ SCH ×4 (08:48→20:18)
[2016-11-02] MEDS: SERTRALINE 100 MG TAB PO SCH (08:48)
[2016-11-02] MEDS: cefTRIAXone 2,000 MG in SODIUM CHLORIDE 0.9% 100 ML IVPB SCH (08:48)
[2016-11-02 10:20] LABS: Anion Gap 10 mmol/L; Blood Urea Nitrogen 18 mg/dL (9-20); Calcium 9.6 mg/dL (8.4-10.2); Carbon Dioxide 37 mmol/L (22-30); Chloride 96 mmol/L (98-107); Glucose 105 mg/dL (74-99); Non-African American GFR(MDRD) >60 (>60 ml/min/1.73 sqM); Potassium 5.2 mmol/L (3.5-5.1); Sodium 143 mmol/L (137-145)
[2016-11-02 10:41] LABS: CHCM 32.8; HCT 39.5 % (39.0-53.0); HDW 3.03; HGB 12.6 gm/dL (13.0-17.5); Immature Gran Flag Slight; MCH 30.1 pg (25.0-35.0); MCHC 31.8 g/dL (31.0-37.0); MCV 94.9 fL (80.0-100.0); Mean Platelet Volume 7.5; RBC 4.17 m/uL (4.30-5.90); RDW 13.9 % (11.5-15.5); WBC (Perox) 10.44
[2016-11-02 11:57] LABS: Glucose,Whole Blood 112 mg/dL (75-99)
[2016-11-02 12:25] LABS: Add Differential Manual Differential
[2016-11-02 12:28] LABS: Band Neutrophils % 1.5 %; Metamyelocytes % 2.5 %; Myelocytes % 3.5 %; Nucleated Red Blood Cells 1 /100 WBC (0-0); Promyelocytes % 0.5 %; Total Cells Counted 200; WBC 10.5 k/uL (3.8-10.6)
[2016-11-02 12:31] LABS: Spherocytes Present
--- NOTE | 2016-11-02 12:31 | P.PN ---
Subjective This is a 66-year-old gentleman who was admitted with a diagnosis of COPD exacerbation. His sputum was positive for Streptococcus pneumoniae. The patient's currently on Rocephin and Zithromax. Anyway we'll be went into the room the patient was having a coughing jag. He was quite short of breath. I stressed respiratory therapist give him another a breathing treatment. Anyway the patient does seem a bit better when I compared to what Dr. Medina said about the patient on the day prior. The patient is apparently got a lesion noted in the right middle lobe and will have a follow-up computed tomography scan in 3-[address] Objective - Vital Signs Vital signs: Vital Signs Temp 97 F L 11/02/16 07:00 Pulse 92 11/02/16 12:06 Resp 21 11/02/16 07:00 BP 136/96 11/02/16 07:00 Pulse Ox 96 11/02/16 08:05 Intake & Output 11/01/16 11/02/16 11/02/16 18:59 06:59 18:59 Intake Total 300 Output Total 500 Balance -200 Intake: Oral 300 Output: Urine 500 Other: Voiding Method Toilet # Voids 2 - Exam No acute distress, oriented 3. The patient is mildly tachypneic and dyspneic and was coughing we first entered the room. HEENT examination is grossly unremarkable. Mucous membranes are moist. Neck supple. Full range of motion. No adenopathy. Cardiovascular examination reveals regular rhythm rate. S1-S2 normal. Lungs are diffusely coarse. There is inspiratory and expiratory rhonchi and wheezes. Breath sounds are diminished. Abdomen soft bowel sounds are heard. Extremities are intact. - Labs CBC & Chem 7: 11/02/16 08:42 11/02/16 08:42 Labs: Abnormal Lab Results - Last 24 Hours (Table) 11/01/16 11/01/16 11/02/16 Range/Units 16:59 21:27 08:01 RBC (4.30-5.90) m/uL Hgb (13.0-17.5) gm/dL Plt Count (150-450) k/uL Potassium (3.5-5.1) mmol/L Chloride (98-107) mmol/L Carbon Dioxide (22-30) mmol/L Glucose (74-99) mg/dL POC Glucose (mg/dL) 137 H 118 H 116 H (75-99) mg/dL 11/02/16 11/02/16 11/02/16 Range/Units 08:42 08:42 11:52 RBC 4.17 L (4.30-5.90) m/uL Hgb 12.6 L (13.0-17.5) gm/dL Plt Count 510 H (150-450) k/uL Potassium 5.2 H (3.5-5.1) mmol/L Chloride 96 L (98-107) mmol/L Carbon Dioxide 37 H (22-30) mmol/L Glucose 105 H (74-99) mg/dL POC Glucose (mg/dL) 112 H (75-99) mg/dL Microbiology - Last 24 Hours (Table) 10/31/16 08:26 Gram Stain - Preliminary Sputum Sputum Culture - Preliminary Streptococcus pneumoniae 10/29/16 22:00 Gram Stain - Final Sputum Sputum Culture - Final Streptococcus pneumoniae Assessment and Plan (1) Acute exacerbation of chronic obstructive pulmonary disease (COPD) Status: Acute Plan: Plan The patient will get another statin breathing treatment. We'll review his medications. He should certainly be on albuterol and Atrovent updrafts 4 times a day and when necessary. He would benefit from either high-dose Symbicort or Pulmicort 1 mg and performance twice a day. In addition the patient will need IV Solu-Medrol. His medications labs and x-rays are all reviewed. Time with Patient: Less than 30
--- NOTE | 2016-11-02 17:00 | PN ---
DATE OF SERVICE: 10/31/2016 INTERVAL HISTORY: Mr. Rendon is a 66-year-old male with known history of COPD on home oxygen, admitted to the hospital with worsening shortness of breath, currently being treated ( ). Otherwise, the patient is still having significant wheezing but the patient states wheezing slightly improved. Otherwise, no acute overnight issues. CT of the chest showed spiculated 3.2 x ( ) mass in the anterior aspect of the right middle lobe. ( ) cannot be excluded. Pulmonary recommended outpatient follow up ( ) scan. Otherwise, the patient denied any acute overnight issues. Complete review of systems negative except as above. No worsening shortness of breath. No leg swelling. No fever. No chills. CURRENT MEDICATIONS: Reviewed. PHYSICAL EXAMINATION: A 62-year-old male lying in bed comfortably; awake, alert and oriented times three. Appears to be in no apparent distress. VITALS: Blood pressure 128/97, pulse is 88, respirations 20, temperature afebrile, pulse ox 93% on 2 L nasal cannula. HEENT: Atraumatic, normocephalic. Neck is supple. No JVD. CVS: S1, S2 heard. No murmurs, no gallop. LUNGS: Bilateral air diminished bilaterally, scattered rhonchi positive. Expiratory wheezing positive. Nonlabored breathing. ABDOMEN: Soft, nontender. Bowel sounds present. GRADALL OPERATOR: Awake, alert, oriented x3. No focal neurologic deficits. Extremities no edema. Pulses palpable bilaterally. No clubbing or cyanosis. PSYCHIATRY: Cooperative. LABORATORY DATA: Reviewed. IMPRESSION: 1. Acute chronic obstructive pulmonary disease exacerbation. 2. Acute on chronic hypercapnic respiratory failure secondary to chronic obstructive pulmonary disease. 3. Acute tracheobronchitis. 4. History of nicotine addiction, ( ) May 2016. 5. Hypothyroidism. 6. Hypertension. 7. Rheumatoid arthritis. 8. Right middle lobe spiculated mass. Needs to follow-up repeat scanning as an outpatient. 9. Deep venous thrombosis prophylaxis. 10. ( ). We will continue the current management including Solu-Medrol, breathing treatments and advised smoking cessation. Continue the current management and follow up close. Further recommendations based on clinical course. Pulmonary are following.
--- NOTE | 2016-11-02 17:06 | PN ---
DATE OF SERVICE: 11/01/2016 INTERVAL HISTORY: Mr. Rendon is a 66 -year-old male with known history of COPD on home oxygen and other medical problems including rheumatoid arthritis, was admitted to the hospital and the patient also has history of nicotine addiction, quit in May 2016. Admitted to the hospital with worsening short of breath, secondary to COPD exacerbation and tracheobronchitis. The patient symptomatically much improved today. No acute overnight issues. No fever, no chills. No worsening short of breath. REVIEW OF SYSTEMS: CONSTITUTIONAL: No fever. No chills. RESPIRATORY: No cough or sputum production. CARDIOVASCULAR: No chest pain. No worsening shortness of breath. No leg swelling. ABDOMEN: No nausea, vomiting or abdominal pain. No diarrhea. No dysuria. ENDOCRINE: Negative. PSYCHIATRY: Negative. SKIN: Negative. MUSCULOSKELETAL: Negative. No constipation. All other 14 points review of systems negative except for the above. CURRENT MEDICATIONS: Reviewed. PHYSICAL EXAMINATION: A 66-year-old male lying in bed comfortably, awake, alert, oriented, x3 appears to be in no apparent distress. VITALS: Blood pressure is 133/81, pulse is 83, respiratory rate 20, temperature afebrile. Pulse ox 94% on 3 L nasal cannula. HEENT: Atraumatic. Normocephalic. NECK: Supple. No jugular venous distention. CVS: S1, S2 heard. No murmurs or gallop. LUNGS: Bilateral air entry improved with expiratory wheezing positive. Improved rhonchi as well. Nonlabored breathing. ABDOMEN: Soft, nontender, bowel sounds present. CENTRAL NERVOUS SYSTEM: Awake, alert and oriented times three. No focal neurologic deficits. Cranial nerves grossly intact. EXTREMITIES: No edema. Pulses are palpable bilaterally. No clubbing or cyanosis. PSYCHIATRIC: Cooperative. LABORATORY DATA: Reviewed. IMPRESSION: 1. Acute hypercapnic respiratory failure secondary to chronic obstructive pulmonary disease exacerbation. 2. Acute chronic obstructive pulmonary disease exacerbation. 3. Acute tracheobronchitis. 4. Right middle lobe spiculated 3.2 x 1.7 cm mass, ( ) cannot be excluded. Outpatient repeat scan needed. 5. Rheumatoid arthritis. 6. Hypothyroidism. 7. Hypertension. 8. Gastroesophageal reflux disease. 9. History of depression. 10. Deep venous thrombosis prophylaxis. DISCUSSION AND PLAN: Continue current management including IV steroids. Solu-Medrol q.6 hourly 60 mg and continue breathing treatments. Follow up closely. The patient will need to follow further ( ) as an outpatient ( ) for repeat scan. Otherwise, patient denied any weight loss or decreased appetite. Continue deep venous thrombosis prophylaxis. Heparin subcu. Further recommendations based on clinical course. Pulmonary is following this patient.
[2016-11-02 17:34] LABS: Glucose,Whole Blood 137 mg/dL (75-99)
[2016-11-02] MEDS: FORMOTEROL FUMARATE 20 MCG/2 ML NEBU INHALATION SCH (19:49)
[2016-11-02] MEDS: BUDESONIDE 1 MG/2 ML NEBU INHALATION SCH (19:49)
[2016-11-02] MEDS: AMITRIPTYLINE HCL 25 MG TAB PO SCH (20:18)
[2016-11-02 20:38] LABS: Glucose,Whole Blood 136 mg/dL (75-99)
[2016-11-03] MEDS: methylPREDNISolone SOD SUCCI 125 MG/2 ML VIAL IV SCH ×4 (00:37→17:06)
[2016-11-03] MEDS: LEVOTHYROXINE 100 MCG TAB PO SCH (06:36)
[2016-11-03] MEDS: INSULIN LISPRO (humaLOG) 300 UNIT/3 ML VIAL SQ SCH ×4 (07:21→20:11)
[2016-11-03 07:40] LABS: Glucose,Whole Blood 121 mg/dL (75-99)
[2016-11-03] MEDS: guaiFENesin 600 MG TABLET.ER PO SCH ×2 (08:10→20:11)
[2016-11-03] MEDS: SERTRALINE 100 MG TAB PO SCH (08:10)
[2016-11-03] MEDS: PANTOPRAZOLE 40 MG TABLET PO SCH (08:10)
[2016-11-03] MEDS: BUDESONIDE 1 MG/2 ML NEBU INHALATION SCH ×2 (08:36→19:45)
[2016-11-03] MEDS: FORMOTEROL FUMARATE 20 MCG/2 ML NEBU INHALATION SCH ×2 (08:36→19:45)
[2016-11-03] MEDS: IPRATROPIUM-ALBUTEROL 3 ML NEB INHALATION PRN ×3 (08:36→19:45)
--- NOTE | 2016-11-03 10:30 | PN ---
DATE OF SERVICE: 11/02/2016 INTERVAL HISTORY: Mr. Rendon is a 66-year-old male with known history of COPD on home oxygen and multiple other medical problems including rheumatoid arthritis was admitted to hospital with worsening shortness of breath. Currently intubated for acute COPD exacerbation and tracheobronchitis and ( ) culture showed Streptococcus pneumoniae. Antibiotics have been changed from azithromycin to ceftriaxone now. Otherwise patient was found to have spiculated mass in the right middle lobe and will need outpatient workup with imaging and possible biopsy. Other, patient's breathing status is much improved now. Still wheezing, otherwise no fever, no chills. No acute overnight issues. REVIEW OF SYSTEMS: CONSTITUTIONAL: No fever, no chills. RESPIRATORY: No cough or sputum production CARDIOVASCULAR: No chest pain or short or breath. ABDOMEN: No nausea. GENITOURINARY: Negative. ENDOCRINE: Negative. PSYCHIATRY: Negative. SKIN: Negative. All other fourteen-point review of systems negative except as above. CURRENT MEDICATIONS: Reviewed. PHYSICAL EXAMINATION: An 66-year-old male lying in the bed comfortably. Awake, alert, oriented x3, appears in no apparent distress. VITALS: Blood pressure is 99/55, pulse 83, respirations 21, temperature afebrile, pulse ox 99% on 3-L nasal cannula. HEENT: Atraumatic, normocephalic. Neck is supple. No JVD. CVS: S1, S2 heard. No murmurs, no gallop. LUNGS: Bilateral air entry is present. Expiratory wheezing positive. No rhonchi. Nonlabored breathing. ABDOMEN: Soft, nontender, bowel sounds present. COMB WINDER: Awake, alert, oriented x3. No focal neurologic deficits. Cranial nerves grossly intact. EXTREMITIES: No edema. Pulses are palpable bilaterally. No clubbing or cyanosis. PSYCHIATRIC: Cooperative. LABORATORY DATA: WBC 10.5, hemoglobin 12.6, platelets 510. Sodium 143, potassium 5.2, chloride 96, bicarb 37, BUN 18, creatinine 0.67, calcium 9.6. IMPRESSION: 1. Acute hypercapnic respiratory failure secondary to chronic obstructive pulmonary disease exacerbation. 2. Chronic obstructive pulmonary disease exacerbation. 3. Acute tracheobronchitis with ( ) cultures growing Streptococcus pneumoniae. Antibiotics changed to ceftriaxone. 4. Right middle lobe spiculated 3.2 x 1.7 cm mass. Malignancy cannot be excluded. Outpatient CT scan and possible biopsy needed. 5. Rheumatoid arthritis. 6. Hypothyroidism. 7. Hypertension. 8. Gastroesophageal reflux disease. 9. History of depression. 10. Deep venous thrombosis prophylaxis. DISCUSSION AND PLAN: Continue with antibiotics. Continue the steroids and continue the breathing treatments and continue the oxygen therapy. Patient is clinically improving. Further recommendations based on clinical course. Will continue the current management. Pulmonary is following patient.
[2016-11-03] MEDS: HYDROcodone/APAP 10-325MG 1 EACH TAB PO PRN ×2 (11:10→22:30)
[2016-11-03 12:16] LABS: Glucose,Whole Blood 99 mg/dL (75-99)
--- NOTE | 2016-11-03 13:41 | P.PN ---
Subjective This is a 66-year-old gentleman who was admitted with a diagnosis of COPD exacerbation. His sputum was positive for Streptococcus pneumoniae. The patient's currently on Rocephin and Zithromax. Anyway we'll be went into the room the patient was having a coughing jag. He was quite short of breath. I stressed respiratory therapist give him another a breathing treatment. Anyway the patient does seem a bit better when I compared to what Dr. Medina said about the patient on the day prior. The patient is apparently got a lesion noted in the right middle lobe and will have a follow-up computed tomography scan in 3-[address] Planned for 11/03/2016 66-year-old gentleman with a history of underlying COPD exacerbation. The patient is doing better today. Will likely be discharged home in 24 hours. He was diagnosed as having strep pneumoniae infection. It was sensitive to Rocephin and Zithromax. He is currently just on Rocephin. He saw my partner over the weekend. He did have a computed tomography scan which or lesion in the right middle lobe which will need follow-up computed tomography scan down the road. Again is feeling much better. Coughing but not producing any phlegm. Much less short of breath. Much less wheezing and tight. Objective - Vital Signs Vital signs: Vital Signs Temp 97.2 F L 11/03/16 07:00 Pulse 85 11/03/16 08:51 Resp 20 11/03/16 07:00 BP 163/92 11/03/16 07:00 Pulse Ox 93 L 11/03/16 07:00 Intake & Output 11/02/16 11/03/16 11/03/16 18:59 06:59 18:59 Intake Total 100 770 Balance 100 770 Intake: Intake, IV Titration 100 Amount cefTRIAXone 2,000 mg In 100 Sodium Chloride 0.9% 100 ml @ 100 mls/hr IVPB Q24HR [facility] Rx#:[id number] Oral 770 Other: Voiding Method Toilet # Voids 1 - Exam No acute distress, oriented 3. The patient is mildly tachypneic and dyspneic and was coughing we first entered the room. HEENT examination is grossly unremarkable. Mucous membranes are moist. Neck supple. Full range of motion. No adenopathy. Cardiovascular examination reveals regular rhythm rate. S1-S2 normal. Lungs are diffusely coarse. There is inspiratory and expiratory rhonchi and wheezes. Breath sounds are diminished. Abdomen soft bowel sounds are heard. Extremities are intact. - Labs CBC & Chem 7: 11/02/16 08:42 11/02/16 08:42 Labs: Abnormal Lab Results - Last 24 Hours (Table) 11/02/16 11/02/16 11/03/16 Range/Units 17:28 20:15 07:04 POC Glucose (mg/dL) 137 H 136 H 121 H (75-99) mg/dL Microbiology - Last 24 Hours (Table) 10/31/16 08:26 Gram Stain - Final Sputum Sputum Culture - Final Streptococcus pneumoniae Assessment and Plan (1) Acute exacerbation of chronic obstructive pulmonary disease (COPD) Status: Acute Plan: Plan The patient will get another statin breathing treatment. We'll review his medications. He should certainly be on albuterol and Atrovent updrafts 4 times a day and when necessary. He would benefit from either high-dose Symbicort or Pulmicort 1 mg and performance twice a day. In addition the patient will need IV Solu-Medrol. His medications labs and x-rays are all reviewed. Plan dated 11/03/2016 The patient will continue on current medications. He is on good antibiotics. The patient's feeling better. Likely discharge in next 24 hours or so. Follow with Dr. Medina in the future. We'll need a follow-up computed tomography scan. Time with Patient: Less than 30
[2016-11-03 17:14] LABS: Glucose,Whole Blood 123 mg/dL (75-99)
[2016-11-03] MEDS: AMITRIPTYLINE HCL 25 MG TAB PO SCH (20:11)
[2016-11-03 20:28] LABS: Glucose,Whole Blood 129 mg/dL (75-99)
[2016-11-03] MEDS: cefTRIAXone 2,000 MG in SODIUM CHLORIDE 0.9% 100 ML IVPB SCH (22:30)
[2016-11-04] MEDS: methylPREDNISolone SOD SUCCI 125 MG/2 ML VIAL IV SCH ×4 (06:39→17:08)
[2016-11-04] MEDS: LEVOTHYROXINE 100 MCG TAB PO SCH (06:39)
[2016-11-04 07:43] LABS: Glucose,Whole Blood 104 mg/dL (75-99)
[2016-11-04] MEDS: INSULIN LISPRO (humaLOG) 300 UNIT/3 ML VIAL SQ SCH ×4 (07:43→21:40)
[2016-11-04] MEDS: PANTOPRAZOLE 40 MG TABLET PO SCH (07:44)
[2016-11-04] MEDS: guaiFENesin 600 MG TABLET.ER PO SCH ×2 (07:44→21:39)
[2016-11-04] MEDS: SERTRALINE 100 MG TAB PO SCH (07:44)
[2016-11-04] MEDS: BUDESONIDE 1 MG/2 ML NEBU INHALATION SCH ×2 (07:46→20:39)
[2016-11-04] MEDS: FORMOTEROL FUMARATE 20 MCG/2 ML NEBU INHALATION SCH ×2 (07:46→20:39)
[2016-11-04] MEDS: IPRATROPIUM-ALBUTEROL 3 ML NEB INHALATION PRN ×4 (07:46→20:39)
--- NOTE | 2016-11-04 10:48 | P.PN ---
Subjective This is a 66-year-old gentleman who was admitted with a diagnosis of COPD exacerbation. His sputum was positive for Streptococcus pneumoniae. The patient's currently on Rocephin and Zithromax. Anyway we'll be went into the room the patient was having a coughing jag. He was quite short of breath. I stressed respiratory therapist give him another a breathing treatment. Anyway the patient does seem a bit better when I compared to what Dr. Medina said about the patient on the day prior. The patient is apparently got a lesion noted in the right middle lobe and will have a follow-up computed tomography scan in 3-[address]. Planned for 11/03/2016 66-year-old gentleman with a history of underlying COPD exacerbation. The patient is doing better today. Will likely be discharged home in 24 hours. He was diagnosed as having strep pneumoniae infection. It was sensitive to Rocephin and Zithromax. He is currently just on Rocephin. He saw my partner over the weekend. He did have a computed tomography scan which or lesion in the right middle lobe which will need follow-up computed tomography scan down the road. Again is feeling much better. Coughing but not producing any phlegm. Much less short of breath. Much less wheezing and tight. Progress note dated 11/04/2016 66-year-old M in with history of COPD exacerbation. He was admitted on October 28. From my perspective the patient could be discharged home. He was diagnosed as having strep pneumoniae tracheobronchitis as bronchopneumonia. It was sensitive to both Rocephin and other antibiotics. This Zithromax was discontinued. Anyway the patient is doing much better. Less cough phlegm production. Less shortness of breath. Again the primary can discharge the patient any time. He is on oxygen at home on a chronic basis. Objective - Vital Signs Vital signs: Vital Signs Temp 97 F L 11/04/16 07:00 Pulse 76 11/04/16 07:55 Resp 18 11/04/16 07:00 BP 137/88 11/04/16 07:00 Pulse Ox 98 11/04/16 07:00 Intake & Output 11/03/16 11/04/16 11/04/16 18:59 06:59 18:59 Intake Total 1000 Balance 1000 Intake: Oral 1000 Other: Voiding Method Toilet Toilet # Voids 2 1 - Exam No acute distress, oriented 3. The patient is mildly tachypneic and dyspneic and was coughing we first entered the room. HEENT examination is grossly unremarkable. Mucous membranes are moist. Neck supple. Full range of motion. No adenopathy. Cardiovascular examination reveals regular rhythm rate. S1-S2 normal. Lungs are diffusely coarse. There is inspiratory and expiratory rhonchi and wheezes. Breath sounds are diminished. The overall breath sounds O have improved today. Abdomen soft bowel sounds are heard. Extremities are intact. - Labs CBC & Chem 7: 11/02/16 08:42 11/02/16 08:42 Labs: Abnormal Lab Results - Last 24 Hours (Table) 11/03/16 11/03/16 11/04/16 Range/Units 17:03 20:05 07:42 POC Glucose (mg/dL) 123 H 129 H 104 H (75-99) mg/dL Microbiology - Last 24 Hours (Table) 10/31/16 08:26 Gram Stain - Final Sputum Sputum Culture - Final Streptococcus pneumoniae Assessment and Plan (1) Acute exacerbation of chronic obstructive pulmonary disease (COPD) Status: Acute Plan: Plan The patient will get another statin breathing treatment. We'll review his medications. He should certainly be on albuterol and Atrovent updrafts 4 times a day and when necessary. He would benefit from either high-dose Symbicort or Pulmicort 1 mg and performance twice a day. In addition the patient will need IV Solu-Medrol. His medications labs and x-rays are all reviewed. Plan dated 11/03/2016 The patient will continue on current medications. He is on good antibiotics. The patient's feeling better. Likely discharge in next 24 hours or so. Follow with Dr. Medina in the future. We'll need a follow-up computed tomography scan. Plan dated 11/04/2016 The patient's doing better. Will follow-up with my partner in the future. The patient Can became be converted to oral prednisone and oral antibiotics. Additional recommendations suggestions are forthcoming. We'll allow the primary service to determine the day of discharge. From our standpoint patient stable. Time with Patient: Less than 30
[2016-11-04] MEDS: HYDROcodone/APAP 10-325MG 1 EACH TAB PO PRN ×2 (10:59→21:40)
--- NOTE | 2016-11-04 11:18 | PN ---
DATE OF SERVICE: 11/03/2016 Mr. Rendon is a 66-year-old male with known history of COPD on home oxygen and multiple other medical problems admitted to hospital with worsening shortness of breath currently being treated for acute COPD exacerbation. Sputum cultures showed Streptococcus pneumonia. Antibiotics have been changed to ceftriaxone now. Currently the patient ( ) is much improved now. Wheezing also improved but still wheezing. The patient does have short of breath with ambulation. Anticipate discharge in the next 24 hours with more clinical improvement and pulmonary follow up for right middle lobe spiculated mass. Otherwise, no acute overnight issues. Complete review of systems negative except as above. No chest pain. No shortness of breath. No leg swelling. Current Medications are reviewed. PHYSICAL EXAMINATION: A 66-year-old male lying in bed comfortably awake, alert and oriented times three, appears to be in no apparent distress. VITALS: Blood pressure 144/89, pulse 74, respiratory rate 18, temperature afebrile, pulse ox 93% on 2 liters nasal cannula. HEENT: Atraumatic, normocephalic. Neck is supple. No JVD. CVS: S1, S2 heard. No murmurs, no gallop, no rub. LUNGS: Bilateral air entry is present. No wheezing, no crackles. Nonlabored breathing. ABDOMEN: Soft, nontender, bowel sounds present. CENTRAL NERVOUS SYSTEM: Awake, alert and oriented times three. LUNGS: Bilateral air entry is present with expiratory wheezing positive. Nonlabored breathing. ABDOMEN: Soft, nontender. Bowel sounds present. CENTRAL NERVOUS SYSTEM: Awake, alert and oriented times three. No focal neurologic deficits. Cranial nerves grossly intact. EXTREMITIES: No edema. Pulses palpable bilaterally. No clubbing or cyanosis. PSYCHIATRY: Cooperative. LABORATORY DATA: WBC 10.4, hemoglobin 12.6, platelets 510, sodium 143, potassium 5.2, chloride 93, bicarb 37, BUN 18, creatinine 0.67. Calcium 9.6. IMPRESSION: 1. Acute hypercapnic respiratory failure secondary to chronic obstructive pulmonary disease exacerbation. 2. Acute chronic obstructive pulmonary disease exacerbation. 3. Acute tracheobronchitis with sputum cultures growing enterococcus pneumonia, antibiotic changed to ceftriaxone. 4. Right middle lobe spiculated 3.2 x 1.7 cm mass, ( ) cannot be excluded. Outpatient CT scan and possible biopsy needed. 5. Rheumatoid arthritis. 6. Hypothyroidism. 7. Hypertension. 8. Gastroesophageal reflux disease. 9. History of depression. 10. Deep venous thrombosis prophylaxis. DISCUSSION AND PLAN: We will continue with antibiotics. Continue breathing treatments and steroids. Oxygen therapy. Anticipate discharge in the next 24 to 48 hours with more clinical movement. Pulmonary on board.
[2016-11-04 11:54] LABS: Glucose,Whole Blood 96 mg/dL (75-99)
[2016-11-04 17:27] LABS: Glucose,Whole Blood 120 mg/dL (75-99)
[2016-11-04] MEDS ORDERED: FLUCONAZOLE 150 MG TAB PO STA (18:47)
--- NOTE | 2016-11-04 18:47 | P.PN ---
Subjective This is a 66-year-old gentleman who was admitted to the hospital with difficulty breathing secondary to a COPD exacerbation. Patient's sputum was positive for strep pneumonia. Patient has been treated with IV antibiotics and IV steroids and breathing treatments. Over the course of the hospital physician patient states to have improved slightly. States have a cough minimally productive in nature. Initially was yellow currently whitish in nature. Patient does complain of burning in his tongue Denies having any fevers, chills, nausea, vomiting. Patient is able to ambulate to the door without much difficulty vision at baseline is able to ambulate longer distances at home. States to have had progressive worsening of breathing for the last few weeks. Objective - Vital Signs Vital signs: Vital Signs Temp 96.5 F L 11/04/16 14:34 Pulse 64 11/04/16 15:52 Resp 16 11/04/16 14:34 BP 164/90 11/04/16 14:34 Pulse Ox 95 11/04/16 14:34 Intake & Output 11/03/16 11/04/16 11/04/16 18:59 06:59 18:59 Intake Total 1000 Balance 1000 Weight 70.7 kg Intake: Oral 1000 Other: Voiding Method Toilet Toilet # Voids 2 1 3 - Exam Physical exam Gen. appearance oriented 3 in no distress Neck is supple no JVD Lungs air movement is noted. However there is expiratory wheeze diffusely noted. Heart S1-S2 heard regular rate and rhythm no murmurs appreciated Abdomen is soft nontender no organomegaly bowel sounds are intact Neurologically cranial nerves II-12 grossly intact no focal motor or sensory deficits noted Skin no abnormalities appreciated - Labs CBC & Chem 7: 11/02/16 08:42 11/02/16 08:42 Labs: Abnormal Lab Results - Last 24 Hours (Table) 11/03/16 11/04/16 11/04/16 Range/Units 20:05 07:42 17:25 POC Glucose (mg/dL) 129 H 104 H 120 H (75-99) mg/dL Assessment and Plan Plan: #1 acute exacerbation of COPD secondary to acute tracheal bronchitis from strep pneumonia #2 history of tobacco abuse quit 1 year ago #3 history of hypertension #4 spiculated mass noted on computed tomography scan Plan Patient will be started on nystatin swish and swallow a dose of Diflucan will be given. Patient will likely be discharged home tomorrow.
[2016-11-04] MEDS: cefTRIAXone 2,000 MG in SODIUM CHLORIDE 0.9% 100 ML IVPB SCH (20:28)
[2016-11-04 21:24] LABS: Glucose,Whole Blood 111 mg/dL (75-99)
[2016-11-04] MEDS: AMITRIPTYLINE HCL 25 MG TAB PO SCH (21:39)
[2016-11-04] MEDS: NYSTATIN 100,000 UNIT/ML SUSP 500,000 UNIT/5 ML CUP PO SCH (21:40)
[2016-11-04] MEDS: methylPREDNISolone SOD SUCCI 40 MG/ML 1 ML VIAL IV SCH (23:37)
[2016-11-05 01:18] VITALS: RESP 18
[2016-11-05] MEDS: LEVOTHYROXINE 100 MCG TAB PO SCH (06:46)
[2016-11-05] MEDS: FORMOTEROL FUMARATE 20 MCG/2 ML NEBU INHALATION SCH (07:35)
[2016-11-05] MEDS: BUDESONIDE 1 MG/2 ML NEBU INHALATION SCH (07:35)
[2016-11-05] MEDS: IPRATROPIUM-ALBUTEROL 3 ML NEB INHALATION PRN ×2 (07:35→11:21)
[2016-11-05 07:41] LABS: Glucose,Whole Blood 96 mg/dL (75-99)
[2016-11-05 08:05] VITALS: BP 167/94; TEMP 96.6
[2016-11-05] MEDS: INSULIN LISPRO (humaLOG) 300 UNIT/3 ML VIAL SQ SCH ×2 (08:12→12:04)
[2016-11-05] MEDS: NYSTATIN 100,000 UNIT/ML SUSP 500,000 UNIT/5 ML CUP PO SCH ×2 (08:29→13:07)
[2016-11-05] MEDS: guaiFENesin 600 MG TABLET.ER PO SCH (08:29)
[2016-11-05] MEDS: PANTOPRAZOLE 40 MG TABLET PO SCH (08:29)
[2016-11-05] MEDS: SERTRALINE 100 MG TAB PO SCH (08:29)
[2016-11-05] MEDS: methylPREDNISolone SOD SUCCI 40 MG/ML 1 ML VIAL IV SCH (08:29)
[2016-11-05] MEDS: HYDROcodone/APAP 10-325MG 1 EACH TAB PO PRN (10:50)
[2016-11-05 11:30] VITALS: PULSE 78
[2016-11-05 11:45] LABS: Glucose,Whole Blood 98 mg/dL (75-99)
--- NOTE | 2016-11-05 13:51 | P.PN ---
Subjective This is a 66-year-old gentleman who was admitted with a diagnosis of COPD exacerbation. His sputum was positive for Streptococcus pneumoniae. The patient's currently on Rocephin and Zithromax. Anyway we'll be went into the room the patient was having a coughing jag. He was quite short of breath. I stressed respiratory therapist give him another a breathing treatment. Anyway the patient does seem a bit better when I compared to what Dr. Medina said about the patient on the day prior. The patient is apparently got a lesion noted in the right middle lobe and will have a follow-up computed tomography scan in 3-[address]. Planned for 11/03/2016 66-year-old gentleman with a history of underlying COPD exacerbation. The patient is doing better today. Will likely be discharged home in 24 hours. He was diagnosed as having strep pneumoniae infection. It was sensitive to Rocephin and Zithromax. He is currently just on Rocephin. He saw my partner over the weekend. He did have a computed tomography scan which or lesion in the right middle lobe which will need follow-up computed tomography scan down the road. Again is feeling much better. Coughing but not producing any phlegm. Much less short of breath. Much less wheezing and tight. Progress note dated 11/04/2016 66-year-old M in with history of COPD exacerbation. He was admitted on October 28. From my perspective the patient could be discharged home. He was diagnosed as having strep pneumoniae tracheobronchitis as bronchopneumonia. It was sensitive to both Rocephin and other antibiotics. This Zithromax was discontinued. Anyway the patient is doing much better. Less cough phlegm production. Less shortness of breath. Again the primary can discharge the patient any time. He is on oxygen at home on a chronic basis. Progress note dated 11/05/2016 This is a 66-year-old white man with history of COPD exacerbation. He was admitted way back on October 28. The patient is improved. Did have an evidence of a Streptococcus pneumoniae tracheobronchitis as bronchopneumonia. The patient's probably pretty much at baseline. He does have home oxygen already set up as well as updraft nebulizer, etc. He can be discharged home on some oral antibiotic and a prednisone burst and taper massive whether or not he could go home today we suggest. He should follow-up with Dr. Medina in the office. Objective - Vital Signs Vital signs: Vital Signs Temp 96.6 F L 11/05/16 07:00 Pulse 78 11/05/16 11:30 Resp 18 11/05/16 07:00 BP 167/94 11/05/16 07:00 Pulse Ox 96 11/05/16 07:00 Intake & Output 11/04/16 11/05/16 11/05/16 18:59 06:59 18:59 Intake Total 400 Balance 400 Weight 70.7 kg Intake: Oral 400 Other: Voiding Method Toilet Toilet # Voids 3 1 - Exam No acute distress, oriented 3. The patient is mildly tachypneic and dyspneic and was coughing we first entered the room. HEENT examination is grossly unremarkable. Mucous membranes are moist. Neck supple. Full range of motion. No adenopathy. Cardiovascular examination reveals regular rhythm rate. S1-S2 normal. Lungs are diffusely coarse. There is inspiratory and expiratory rhonchi and wheezes. Breath sounds are diminished. The overall breath sounds have significantly improved. The patient is close to being at baseline. Abdomen soft bowel sounds are heard. Extremities are intact. - Labs CBC & Chem 7: 11/02/16 08:42 11/02/16 08:42 Labs: Abnormal Lab Results - Last 24 Hours (Table) 11/04/16 11/04/16 Range/Units 17:25 21:21 POC Glucose (mg/dL) 120 H 111 H (75-99) mg/dL Assessment and Plan (1) Acute exacerbation of chronic obstructive pulmonary disease (COPD) Status: Acute Plan: Plan The patient will get another statin breathing treatment. We'll review his medications. He should certainly be on albuterol and Atrovent updrafts 4 times a day and when necessary. He would benefit from either high-dose Symbicort or Pulmicort 1 mg and performance twice a day. In addition the patient will need IV Solu-Medrol. His medications labs and x-rays are all reviewed. Plan dated 11/03/2016 The patient will continue on current medications. He is on good antibiotics. The patient's feeling better. Likely discharge in next 24 hours or so. Follow with Dr. Medina in the future. We'll need a follow-up computed tomography scan. Plan dated 11/04/2016 The patient's doing better. Will follow-up with my partner in the future. The patient Can became be converted to oral prednisone and oral antibiotics. Additional recommendations suggestions are forthcoming. We'll allow the primary service to determine the day of discharge. From our standpoint patient stable. Plan dated 11/05/2016 The patient is doing better. Probably is at baseline. The patient will follow- up in our office. He should be discharged on some oral antibiotics which are effective against a Streptococcus pneumoniae. He could also be discharged home on his updrafts as inhaler and his prednisone burst and taper. No additional recommendations are made. Time with Patient: Less than 30
--- NOTE | 2016-11-05 20:41 | P.DS ---
Providers Date of admission: 10/28/16 18:38 Expected date of discharge: 11/05/16 Attending physician: Jordan Rodriguez Primary care physician: Shashi Wheeler [facility] Course: This is a 66-year-old gentleman who was admitted to the hospital with difficulty breathing secondary to a COPD exacerbation. Patient's sputum was positive for strep pneumonia. Patient has been treated with IV antibiotics and IV steroids and breathing treatments. Over the course of the hospital physician patient states to have improved slightly. States have a cough minimally productive in nature. Initially was yellow currently whitish in nature. Patient does complain of burning in his tongue Denies having any fevers, chills, nausea, vomiting. Patient is able to ambulate to the door without much difficulty vision at baseline is able to ambulate longer distances at home. States to have had progressive worsening of breathing for the last few weeks. Day of discharge Was ambulating well States to have a cough, minimally productive in nature. - Exam Physical exam Gen. appearance oriented 3 in no distress Neck is supple no JVD Lungs air movement is noted. However there is expiratory wheeze diffusely noted. Heart S1-S2 heard regular rate and rhythm no murmurs appreciated Abdomen is soft nontender no organomegaly bowel sounds are intact Neurologically cranial nerves II-12 grossly intact no focal motor or sensory deficits noted Skin no abnormalities appreciated Assessment and Plan Plan: #1 acute exacerbation of COPD secondary to acute tracheal bronchitis from strep pneumonia #2 history of tobacco abuse quit 1 year ago #3 history of hypertension #4 spiculated mass noted on computed tomography scan Pl Steroid taper Abx breathing tx at home Dc home to follow up with Dr Fonseca and Dr Wheeler. Patient Condition at Discharge: Good Plan - Discharge Summary New Discharge Prescriptions: Levofloxacin [Levaquin] 750 mg PO DAILY #7 tab Nystatin 100,000 Unit/ml Susp [Mycostatin Oral Susp] 500,000 unit PO QID #7 cup predniSONE 0 mg PO DIRECTED #45 tab Discharge Medication List Albuterol Nebulized [Ventolin Nebulized] 2.5 mg INHALATION RT-Q4H PRN 10/28/16 [ History] Amitriptyline HCl [Elavil] 25 mg PO HS 10/28/16 [History] Budesonide/Formoterol Fumarate [Symbicort 160-4.5 Mcg Inhaler] 2 puff INHALATION RT-BID 10/28/16 [History] Fluticasone Nasal [place] [Flonase Nasal [place]] 1 spray EA NOSTRIL DAILY PRN 10/28 [History] Gluc/[place]-MSM#1/C/Danyel/Naveed/Bor [Glucosamine-Chondroitin Tablet] 1 tab PO DAILY 10/28/16 [History] HYDROcodone/APAP 10-325MG [[place] 10-325] 2 tab PO TID PRN 10/28/16 [History] Ipratropium/Albuterol Sulfate [Combivent Respimat Inhaler] 1 puff INHALATION RT- QID PRN 10/28/16 [History] Levothyroxine Sodium [Synthroid] 200 mcg PO DAILY 10/28/16 [History] Multivitamins, Thera [Multivitamin] 1 tab PO DAILY 10/28/16 [History] [place]-3 Fatty Acids/Fish Oil [Fish Oil 1,000 mg Softgel] 1 cap PO DAILY [History] Omeprazole [PriLOSEC] 20 mg PO BID 10/28/16 [History] Sertraline [Zoloft] 200 mg PO DAILY 10/28/16 [History] amLODIPine [Norvasc] 5 mg PO DAILY 10/28/16 [History] Levofloxacin [Levaquin] 750 mg PO DAILY #7 tab 11/05/16 [Rx] Nystatin 100,000 Unit/ml Susp [Mycostatin Oral Susp] 500,000 unit PO QID #7 cup 11/05/16 [Rx] predniSONE 0 mg PO DIRECTED #45 tab 11/05/16 [Rx] Follow up Appointment(s)/Referral(s): Shashi Wheeler DO [Primary Care Provider] - 3 Days (office closed. please call to schedule an appointment.) Patient Instructions/Handouts: COPD (Chronic Obstructive Pulmonary Disease) (DC ) Activity/Diet/Wound Care/Special Instructions: NO smoking, cessation information provided. Cardiac diet. Discharge Disposition: HOME SELF-CARE
== END 2016-11-05 15:22 | disposition home or self-care (01) | DRG 190 ==
LOC: EC 15:34 → 6SEL 18:38 → 4MS4W 10-29 11:09
PROVIDERS: ADMIT Internal Medicine; ATTEND Internal Medicine
DX: J44.0 Chronic obstructive pulmonary disease with (acute) lower respiratory infection (principal); J96.22 Acute and chronic respiratory failure with hypercapnia; Z99.81 Dependence on supplemental oxygen; E03.9 Hypothyroidism, unspecified; J44.1 Chronic obstructive pulmonary disease with (acute) exacerbation; B95.3 Streptococcus pneumoniae as the cause of diseases classified elsewhere; J20.9 Acute bronchitis, unspecified; R91.8 Other nonspecific abnormal finding of lung field; F17.210 Nicotine dependence, cigarettes, uncomplicated; F41.9 Anxiety disorder, unspecified; R00.0 Tachycardia, unspecified; F32.9 Major depressive disorder, single episode, unspecified; M06.9 Rheumatoid arthritis, unspecified; I10 Essential (primary) hypertension; E78.5 Hyperlipidemia, unspecified; F43.10 Post-traumatic stress disorder, unspecified; K21.9 Gastro-esophageal reflux disease without esophagitis; K58.9 Irritable bowel syndrome, unspecified; Z88.1 Allergy status to other antibiotic agents; Z88.2 Allergy status to sulfonamides; Z82.49 Family history of ischemic heart disease and other diseases of the circulatory system; Z87.828 Personal history of other (healed) physical injury and trauma; Z87.01 Personal history of pneumonia (recurrent); Z79.891 Long term (current) use of opiate analgesic; Z79.51 Long term (current) use of inhaled steroids; Z79.899 Other long term (current) drug therapy
CPT/HCPCS: 36415; 71020; 71250; 80048; 80053; 81001; 83605; 85025; 85610; 85730; 87040; 87070; 87077; 87086; 87186; 87205; 93005; 94640; 94644; 94760; 96361; 96372; 96374; 96376; 99285

== ENCOUNTER 2016-12-30 12:58 | Emergency (ER) | payer OTHER ==
[2016-12-30] MEDS ORDERED: SODIUM CHLORIDE 0.9% 500 ML IV STA (13:26)
[2016-12-30] MEDS ORDERED: methylPREDNISolone SOD SUCCI 125 MG/2 ML VIAL IV STA (13:26)
[2016-12-30] MEDS ORDERED: IPRATROPIUM-ALBUTEROL 3 ML NEB INHALATION STA ×2 (13:26→15:32)
[2016-12-30] MEDS ORDERED: ASPIRIN 81 MG CHEW PO STA (13:26)
[2016-12-30 14:32] LABS: CH 31.1; CHCM 33.9; HCT 34.8 % (39.0-53.0); HDW 3.15; HGB 11.7 gm/dL (13.0-17.5); Immature Gran Flag Marked; MCH 31.1 pg (25.0-35.0); MCHC 33.7 g/dL (31.0-37.0); MCV 92.3 fL (80.0-100.0); Mean Platelet Volume 7.5; RBC 3.77 m/uL (4.30-5.90); RDW 14.4 % (11.5-15.5); WBC (Perox) 7.84
[2016-12-30 14:33] LABS: Anion Gap 11 mmol/L; Blood Urea Nitrogen 17 mg/dL (9-20); Carbon Dioxide 29 mmol/L (22-30); Chloride 96 mmol/L (98-107); Glucose 104 mg/dL (74-99); Non-African American GFR(MDRD) >60 (>60 ml/min/1.73 sqM); Potassium 4.3 mmol/L (3.5-5.1); Sodium 136 mmol/L (137-145)
--- NOTE | 2016-12-30 14:48 | ED ---
SOB HPI - General Chief Complaint: Shortness of Breath Stated Complaint: RICARDA Time Seen by Provider: 12/30/16 13:25 Source: patient, RN notes reviewed, old records reviewed Mode of arrival: wheelchair Limitations: no limitations - History of Present Illness Initial Comments: 66-year-old male with history of COPD presenting for shortness of breath and cough for the past 2 days. Patient states that he is on oxygen at baseline at 2 -1/2 L nasal cannula. He states that he is been using his home nebulizers without significant improvement of shortness of breath. Does state that he was last on antibiotics and steroids about a month ago when he had a flareup similar to last couple days. He denies any chest pain associated. He denies any fevers or chills. He states that his coughing up moore-brown colored sputum. - Related Data Home Medications Medication Instructions Recorded Confirmed Albuterol Nebulized [Ventolin 2.5 mg INHALATION RT-Q4H PRN 10/28/16 12/30/16 Nebulized] Amitriptyline HCl [Elavil] 25 mg PO HS 10/28/16 12/30/16 Budesonide/Formoterol Fumarate 2 puff INHALATION RT-BID 10/28/16 12/30/16 [Symbicort 160-4.5 Mcg Inhaler] Fluticasone Nasal [place] [Flonase 1 spray EA NOSTRIL DAILY PRN 10/28/16 12/30/16 Nasal [place]] Gluc/[place]-MSM#1/C/Danyel/Naveed/Bor 1 tab PO DAILY 10/28/16 12/30/16 [Glucosamine-Chondroitin Tablet] HYDROcodone/APAP 10-325MG [[place] 2 tab PO TID PRN 10/28/16 12/30/16 10-325] Ipratropium/Albuterol Sulfate 1 puff INHALATION RT-QID PRN 10/28/16 12/30/16 [Combivent Respimat Inhaler] Multivitamins, Thera [Multivitamin 1 tab PO DAILY 10/28/16 12/30/16 (formulary)] [place]-3 Fatty Acids/Fish Oil [Fish 1 cap PO DAILY 10/28/16 12/30/16 Oil 1,000 mg Softgel] Sertraline [Zoloft] 200 mg PO DAILY 10/28/16 12/30/16 amLODIPine [Norvasc] 5 mg PO DAILY 10/28/16 12/30/16 Folic Acid 1 mg PO DAILY 12/30/16 12/30/16 Ipratropium-Albuterol Nebulize 3 ml INHALATION RT-QID 12/30/16 12/30/16 [Duoneb 0.5 mg-3 mg/3 ml Soln] Levothyroxine Sodium [Synthroid] 175 mcg PO DAILY 12/30/16 12/30/16 traMADol HCL [Ultram] 50 mg PO TID PRN 12/30/16 12/30/16 Previous Rx's Medication Instructions Recorded Azithromycin [Zithromax] 250 mg PO DAILY #4 tab 12/30/16 predniSONE 40 mg PO DAILY #10 tab 12/30/16 Allergies Allergy/AdvReac Type Severity Reaction Status Date / Time Sulfa (Sulfonamide Allergy Rash/Hives Verified 12/30/16 13:28 Antibiotics) tetracycline Allergy Anaphylaxis Verified 12/30/16 13:28 Review of Systems ROS Statement: Those systems with pertinent positive or pertinent negative responses have been documented in the HPI. Constitutional: No fevers. No chills. No change in appetite. No unexpected weight loss. Eyes: No visual changes. No eye pain. No sensitivity to light. HENT: No sinus pressure. No ear pain. No hearing changes. No epistaxis. No sore throat. Respiratory: Positive cough. Positive SOB. Positive wheezing. Cardiovascular: No chest pain. No palpitations. No lower extremity edema. Abdomen: No abdominal pain. No nausea. No vomiting. No diarrhea. Genitourinary: No dysuria. No hematuria. No difficulty urinating. No flank pain. Musculoskeletal: No injury. No back pain. No myalgias. Skin: No rash. No lesions. No lacerations. Neuro: No gross strength deficits. No LOC. No seizures. No headache. Psych: No confusion. No memory changes. No anxiety/depression. ROS Other: All systems not noted in ROS Statement are negative. Past Medical History Past Medical History: COPD, Hyperlipidemia, Hypertension, Rheumatoid Arthritis ( RA), Thyroid Disorder Additional Past Medical History / Comment(s): IBS (Aug 2016 diagnosed) History of Any Multi-Drug Resistant Organisms: None Reported Past Surgical History: Orthopedic Surgery Additional Past Surgical History / Comment(s): reconstruction of right ankle, carpal tunnel, shrapnel right leg Additional Past Anesthesia/Blood Transfusion Reaction / Comment(s): blood transfusion in [place] Past Psychological History: Anxiety, Depression, PTSD Smoking Status: Never smoker Past Alcohol Use History: None Reported Past Drug Use History: None Reported - Past Family History Father Family Medical History: No Reported History General Exam - General Exam Comments Initial Comments: General: Awake and Alert. No acute distress. Does not appear acutely ill. Eyes: BRYAN, EOM intact. No nystagmus. No scleral icterus. HENT: Atraumatic, normocephalic. Mucous membranes moist. Trachea midline. Neck: The neck is supple, there is no tenderness or JVD. Cardiovascular: Regular rate and rhythm. No murmur, rub, or gallop is appreciated. Distal pulses intact. Respiratory: Lungs are clear to auscultation bilaterally. Diffuse wheezes. No rales, rhonchi. No respiratory distress. Gastrointestinal: Soft, Nontender. No rebound or guarding. Non-distended. No masses or organomegaly noted. No CVA tenderness. Musculoskeletal: No tenderness. Normal ROM. No gross deformity. No strength deficits. Neurological: A&Ox3. CN II-XII grossly intact, There are no obvious motor or sensory deficits. Coordination appears grossly intact. Speech is normal. Skin: Skin is warm and dry and no rashes or lesions are noted. Psychiatric: Cooperative, appropriate mood & affect, normal judgment. Limitations: no limitations Course Vital Signs 12/30/16 12/30/16 12/30/16 13:09 13:25 14:14 Pulse Rate 99 90 99 Respiratory 22 24 26 H Rate Blood Pressure 108/66 121/64 O2 Sat by Pulse 83 L 99 99 Oximetry 12/30/16 12/30/16 12/30/16 14:16 14:19 14:29 Pulse Rate 91 92 Respiratory Rate Blood Pressure 131/79 O2 Sat by Pulse Oximetry 12/30/16 12/30/16 16:56 17:10 Pulse Rate 94 94 Respiratory Rate Blood Pressure O2 Sat by Pulse Oximetry Medical Decision Making - Medical Decision Making 66-year-old male with history of COPD presenting for shortness of breath. He is on oxygen supplementation at baseline presenting for shortness of breath. Exam with diffuse wheezes. Breathing treatments workup ordered. No active chest pain however given his age and risk, troponins ordered. Chest x-ray no acute process Lab work with stable CBC. Grossly stable BMP. BNP is noted to be mildly elevated although there is no clinical or x-ray evidence of acute CHF exacerbation at this time. Troponins negative 2 Patient reevaluated after multiple breathing treatments states he is feeling much improved. Wheezing significantly improved and with good air movement on auscultation. No respiratory distress currently. Denies any chest pain at this time. Updated on results and imaging. Discussed likely COPD exacerbation. He was treated empirically for community-acquired pneumonia given his productive sputum and risk due to COPD. Rx for azithromycin and prednisone. Discussed close follow-up with PCP. Discussed concerning signs symptoms or immediate return to the ED. Patient is agreeable with plan and discharge home. - Lab Data Result diagrams: 12/30/16 14:00 12/30/16 14:00 Lab Results 12/30/16 12/30/16 12/30/16 Range/Units 14:00 14:00 14:00 WBC 7.0 (3.8-10.6) k/uL RBC 3.77 L (4.30-5.90) m/uL Hgb 11.7 L (13.0-17.5) gm/dL Hct 34.8 L (39.0-53.0) % MCV 92.3 (80.0-100.0) fL MCH 31.1 (25.0-35.0) pg MCHC 33.7 (31.0-37.0) g/dL RDW 14.4 (11.5-15.5) % Plt Count 256 (150-450) k/uL Neutrophils % (Manual) 53.0 % Band Neutrophils % 12.0 % Lymphocytes % (Manual) 20.0 % Monocytes % (Manual) 10.0 % Metamyelocytes % 3.0 % Myelocytes % 2.0 % Neutrophils # (Manual) 4.6 (1.3-7.7) k/uL Lymphocytes # (Manual) 1.4 (1.0-4.8) k/uL Monocytes # (Manual) 0.7 (0-1.0) k/uL Nucleated RBCs 0 (0-0) /100 WBC Toxic Granulation Present Polychromasia Present Sodium 136 L (137-145) mmol/L Potassium 4.3 (3.5-5.1) mmol/L Chloride 96 L (98-107) mmol/L Carbon Dioxide 29 (22-30) mmol/L Anion Gap 11 mmol/L BUN 17 (9-20) mg/dL Creatinine 0.74 (0.66-1.25) mg/dL Est GFR (MDRD) Af Amer >60 (>60 ml/min/1.73 sqM) Est GFR (MDRD) Non-Af >60 (>60 ml/min/1.73 sqM) Glucose 104 H (74-99) mg/dL Calcium 9.0 (8.4-10.2) mg/dL Troponin I (0.000-0.034) ng/mL NT-Pro-B Natriuret Pep 487 pg/mL 12/30/16 12/30/16 Range/Units 14:00 17:05 WBC (3.8-10.6) k/uL RBC (4.30-5.90) m/uL Hgb (13.0-17.5) gm/dL Hct (39.0-53.0) % MCV (80.0-100.0) fL MCH (25.0-35.0) pg MCHC (31.0-37.0) g/dL RDW (11.5-15.5) % Plt Count (150-450) k/uL Neutrophils % (Manual) % Band Neutrophils % % Lymphocytes % (Manual) % Monocytes % (Manual) % Metamyelocytes % % Myelocytes % % Neutrophils # (Manual) (1.3-7.7) k/uL Lymphocytes # (Manual) (1.0-4.8) k/uL Monocytes # (Manual) (0-1.0) k/uL Nucleated RBCs (0-0) /100 WBC Toxic Granulation Polychromasia Sodium (137-145) mmol/L Potassium (3.5-5.1) mmol/L Chloride (98-107) mmol/L Carbon Dioxide (22-30) mmol/L Anion Gap mmol/L BUN (9-20) mg/dL Creatinine (0.66-1.25) mg/dL Est GFR (MDRD) Af Amer (>60 ml/min/1.73 sqM) Est GFR (MDRD) Non-Af (>60 ml/min/1.73 sqM) Glucose (74-99) mg/dL Calcium (8.4-10.2) mg/dL Troponin I <0.012 <0.012 (0.000-0.034) ng/mL NT-Pro-B Natriuret Pep pg/mL - EKG Data -: EKG Interpreted by Me (EKG 13:36. Normal sinus rhythm. Rate 95. [place] 134. QRS 108. Normal axis.) EKG shows normal: sinus rhythm Rate: normal Interpretation: normal EKG - Radiology Data Radiology results: report reviewed, image reviewed Disposition Clinical Impression: COPD exacerbation, Cough, Bronchitis Disposition: HOME SELF-CARE Condition: Stable Instructions: COPD (Chronic Obstructive Pulmonary Disease) (ED), Community Acquired Pneumonia (ED) Prescriptions: Azithromycin [Zithromax] 250 mg PO DAILY #4 tab predniSONE 40 mg PO DAILY #10 tab Referrals: Martha Vick MD [Primary Care Provider] - 1-2 days Time of Disposition: 18:09
--- NOTE | 2016-12-30 14:57 | XR ---
EXAMINATION TYPE: XR chest 2V DATE OF EXAM: 12/30/2016 2:47 PM COMPARISON: Prior chest x-ray 28 October 2016 HISTORY: Shortness of breath and cough TECHNIQUE: Frontal and lateral views of the chest are obtained. FINDINGS: There is no focal air space opacity, pleural effusion, or pneumothorax seen. The cardiac silhouette size is within normal limits. There are overlying cardiac leads. Patchy density at the rig ht costophrenic angle is stable and may reflect scarring. Prominent lung volume compatible with emphy sema Old left-sided rib fracture again noted. The osseous structures are intact. IMPRESSION: No acute cardiopulmonary process. There is likely basilar atelectasis or scarring.
[2016-12-30 15:01] LABS: Add Differential Manual Differential
[2016-12-30 15:03] LABS: Nucleated Red Blood Cells 0 /100 WBC (0-0); Total Cells Counted 100
[2016-12-30 15:04] LABS: Polychromasia Present; Toxic Granulation Present
[2016-12-30] MEDS ORDERED: AZITHROMYCIN 500 MG TAB PO STA (16:41)
[2016-12-30 18:50] VITALS: BP 115/67; PULSE 80; RESP 20; TEMP 97
== END 2016-12-30 18:55 | disposition home or self-care (01) ==
LOC: EC 12:58
DX: J44.1 Chronic obstructive pulmonary disease with (acute) exacerbation (principal); J44.0 Chronic obstructive pulmonary disease with (acute) lower respiratory infection; J20.9 Acute bronchitis, unspecified; Z99.81 Dependence on supplemental oxygen; M06.9 Rheumatoid arthritis, unspecified; E78.5 Hyperlipidemia, unspecified; I10 Essential (primary) hypertension; E07.9 Disorder of thyroid, unspecified; F43.10 Post-traumatic stress disorder, unspecified; F41.9 Anxiety disorder, unspecified; F32.9 Major depressive disorder, single episode, unspecified; Z79.51 Long term (current) use of inhaled steroids; Z79.899 Other long term (current) drug therapy
CPT/HCPCS: 99285; 96365; 96366; 96375; 96361 ×3; 36415; 94640 ×2; 93005; 83880; 80048; 84484; 85025; 71020; J2930; J0696

== ENCOUNTER → 2017-04-08 | Outpatient (CLI) | payer MEDICARE, OTHER ==
--- NOTE | 2017-04-08 10:33 | CT ---
EXAMINATION TYPE: CT chest wo con DATE OF EXAM: 04/08/2017 COMPARISON: 10/30/2016 HISTORY: 67 year-old male shortness of breath, cough, COPD, follow-up exam TECHNIQUE: Contiguous axial scanning of the chest without IV contrast. Coronal and sagittal reconstru ctions performed. CT DLP: 530 mGycm Automated exposure control for dose reduction was used. FINDINGS: The heart is normal size without pericardial effusion. Coronary vessel calcifications are present in the remarkable for coronary artery disease. Aorta is normal caliber with variant direct takeoff of the left vertebral artery directly from the ar ch. No thoracic lymphadenopathy. Moderate diffuse bronchial wall thickening with moderate centrilobular emphysema. There is a bronchie ctatic segments at the lung bases, particularly the right lower lobe. Some patchy subpleural density peripheral right middle lobe remains with clearance of the previous spiculated density. Some minimal strandy atelectasis or scar is seen at the inferior lingula. Patchy subpleural density posterior righ t midlung is increased from prior exam. No consolidation or pleural effusion. There is a small to moderate size hiatal hernia. Visualized upper abdomen shows subcentimeter hypoden sity anterior right kidney too small fractured CT characterization, likely cyst. Bones: Degenerative disc disease lower thoracic spine. No osseous destructive process. IMPRESSION: 1. THE PREVIOUSLY SEEN RIGHT MIDDLE LOBE SPICULATED DENSITY HAS LARGELY RESOLVED. MINIMAL INFILTRATE OR PLEURAL PARENCHYMAL SCARRING REMAINS. FINDINGS SUGGEST A PREVIOUS INFECTIOUS/INFLAMMATORY FOCUS. 2. INCREASED PATCHY SUBPLEURAL DENSITY POSTERIOR RIGHT MIDLUNG COULD REPRESENT AN ANNUAL INFECTIOUS/I NFLAMMATORY FOCUS. 3. COPD WITH [id number] EMPHYSEMA. THERE IS EITHER ACUTE BRONCHITIS OR A COMPONENT OF PROMINENT CHRONIC BRONCHITIS AND SOME SCATTERED BASILAR BRONCHIECTASIS. 4. SMALL TO MODERATE SIZE HIATAL HERNIA.
== END | disposition home or self-care (01) ==
LOC: RADCTMAIN 08:57
PROVIDERS: ATTEND Internal Medicine Pulmonary Disease
DX: J43.9 Emphysema, unspecified (principal); R91.8 Other nonspecific abnormal finding of lung field; K44.9 Diaphragmatic hernia without obstruction or gangrene; R05 Cough
CPT/HCPCS: 71250

== ENCOUNTER → 2020-08-12 | Outpatient (CLI) | payer OTHER ==
[2020-08-12 16:55] LABS: Basophils # (A) 0.1 k/uL (0-0.2); Basophils % (A) 1 %; Eosinophils # (A) 0.3 k/uL (0-0.7); Eosinophils % (A) 3 %; HCT 43.1 % (39.0-53.0); HGB 13.4 gm/dL (13.0-17.5); Lymphocytes # (A) 2.1 k/uL (1.0-4.8); Lymphocytes % (A) 26 %; MCH 30.9 pg (25.0-35.0); MCHC 31.1 g/dL (31.0-37.0); MCV 99.4 fL (80.0-100.0); Mean Platelet Volume 6.3; Monocytes # (A) 0.4 k/uL (0-1.0); Monocytes % (A) 5 %; Neutrophils % (A) 63 %; Platelet Count 289 k/uL (150-450); RBC 4.33 m/uL (4.30-5.90)
[2020-08-12 16:56] LABS: African American GFR (CKD) >90 (>60 ml/min/1.73 sqM); Anion Gap 4 mmol/L; Blood Urea Nitrogen 18 mg/dL (9-20); Calcium 9.6 mg/dL (8.4-10.2); Carbon Dioxide 38 mmol/L (22-30); Chloride 96 mmol/L (98-107); Glucose 98 mg/dL (74-99); Non-African American GFR(CKD) 87 (>60 ml/min/1.73 sqM); Potassium 4.3 mmol/L (3.5-5.1); Sodium 138 mmol/L (137-145)
[2020-08-12 17:50] LABS: Appearance,Urine Clear (Clear); Bacteria,Urine Rare /hpf; Bilirubin,Urine Negative (Negative); Blood,Urine Small (Negative); Color,Urine Light Yellow; Glucose,Urine (UA) Negative (Negative); Ketones,Urine Negative (Negative); Leukocyte Esterase,Urine Negative (Negative); Mucus,Urine Rare /hpf; Nitrite,Urine Negative (Negative); PH, Urine 6.5 (5.0-8.0); Protein,Urine Trace (Negative); RBC,Urine 17 /hpf (0-5); Squamous Epithelial Cell,Urine <1 /hpf (0-4); Urobilinogen,Urine <2.0 mg/dL (<2.0); WBC,Urine 18 /hpf (0-5)
== END | disposition home or self-care (01) ==
LOC: LABPAT 15:54
PROVIDERS: ATTEND Urology
DX: Z01.818 Encounter for other preprocedural examination (principal); C67.9 Malignant neoplasm of bladder, unspecified; R31.29 Other microscopic hematuria
CPT/HCPCS: 36415; 80048; 81001; 85025; 87086

== ENCOUNTER 2020-08-19 07:11 | Day surgery (SDC) | payer OTHER ==
[2020-08-15 13:52] VITALS: BMI 23.5
--- NOTE | 2020-08-16 18:00 | P.HPIHPCON ---
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 He underwent an office cystoscopy demonstrated evidence of large bladder tumor. Discussed with him the option of doing a TURBT. Discussed with him the risk which includes but not limited to bleeding, infection, bladder perforation, injury to the ureter. I also discussed with him given his pulmonary status and oxygen requirement, he is an increased risk of respiratory complication, which includes but not limited to prolonged intubation, pneumonia and even . He understood all the risk and agreed to proceed Consent for Procedure: I have explained the operation/procedure to the patient, including the risks, benefits, side effects, alternative therapies (including not receiving the proposed treatment or service), the likelihood of the patient achieving his/her goals, and potential recuperation problems for the procedure/sedation/analgesia, as well as any blood products, if indicated. I also explained to the patient the risks, benefits and side effects of the alternatives, as well as the risks related to not receiving the proposed procedure, care, treatment, or services. Past Medical History Past Medical History: Asthma, COPD, Hyperlipidemia, Hypertension, Liver Disease, Osteoarthritis (OA), Rheumatoid Arthritis (RA), Thyroid Disorder Additional Past Medical History / Comment(s): IBS, constipation, oxygen 2.5l RTC, kidney stone in past, bladder tumor, infectious hepatitis in the past, also tested positive in past for hepatitis B per pt.-no current problems History of Any Multi-Drug Resistant Organisms: None Reported Past Surgical History: Orthopedic Surgery Additional Past Surgical History / Comment(s): reconstruction of right ankle, carpal tunnel right side, right shoulder repair Past Anesthesia/Blood Transfusion Reactions: No Reported Reaction Additional Past Anesthesia/Blood Transfusion Reaction / Comment(s): blood transfusion in [facility] Smoking Status: Former smoker - Past Family History Father Family Medical History: No Reported History Medications and Allergies Home Medications Medication Instructions Recorded Confirmed Type Amitriptyline HCl [Elavil] 25 mg PO HS 10/28/16 08/15/20 History Budesonide/Formoterol Fumarate 2 puff INHALATION RT-BID 10/28/16 08/15/20 History [Symbicort 160-4.5 Mcg Inhaler] Glucosam/[place]-Msm1/C/Danyel/[place]os[place] 1 tab PO DAILY 10/28/16 08/15/20 History [Glucosamine-Chondroitin Tablet] HYDROcodone/APAP 10-325MG [[place] 2 tab PO TID PRN 10/28/16 08/15/20 History 10-325] Ipratropium/Albuterol Sulfate 1 puff INHALATION RT-QID PRN 10/28/16 08/15/20 History [Combivent Respimat Inhaler] Multivitamins, Thera [Multivitamin 1 tab PO DAILY 10/28/16 08/15/20 History (formulary)] [place]-3 Fatty Acids/Fish Oil [Fish 1 cap PO DAILY 10/28/16 08/15/20 History Oil 1,000 mg Softgel] Sertraline [Zoloft] 200 mg PO DAILY 10/28/16 08/15/20 History amLODIPine [Norvasc] 5 mg PO DAILY 10/28/16 08/15/20 History Ipratropium-Albuterol Nebulize 3 ml INHALATION RT-QID PRN 12/30/16 08/15/20 History [Duoneb 0.5 mg-3 mg/3 ml Soln] Levothyroxine Sodium [Synthroid] 200 mcg PO DAILY 12/30/16 08/15/20 History Montelukast Sodium [Singulair] 10 mg PO HS 08/15/20 08/15/20 History Omalizumab [Xolair] 150 mg SQ Q30D 08/15/20 08/15/20 History Rosuvastatin Calcium [Crestor] 5 mg PO DAILY 08/15/20 08/15/20 History Allergies Allergy/AdvReac Type Severity Reaction Status Date / Time Iodinated Contrast Media Allergy Dyspnea Verified 08/15/20 11:06 shellfish derived [Shellfish] Allergy passed out Verified 08/15/20 11:06 Sulfa (Sulfonamide Allergy Rash/Hives Verified 08/15/20 11:06 Antibiotics) tetracycline Allergy Anaphylaxis Verified 08/15/20 11:06 Surgical - Exam - General well developed, well nourished - Eyes PERRL, normal ocular movement - ENT normal nares, normal mucosa - Respiratory normal expansion, normal respiratory effort - Abdomen Abdomen: soft, non tender - Psychiatric oriented to time, oriented to person, oriented to place Assessment and Plan Assessment: 70 yo male with hx of bladder and 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
[~2020-08-19 07:11] MED LIST: DEXAMETHASONE SOD PHOSPHATE 4 MG/ML 1 ML VIAL IV ONE; HYDROmorphone 0.5 MG/0.5 ML SYRINGE IVP PRN; LACTATED RINGERS 1,000 ML IV SCH; MIDAZOLAM 2 MG/2 ML VIAL IV PRN; ONDANSETRON 4 MG/2 ML VIAL IVP ONE
[2020-08-19] MEDS ORDERED: LIDOCAINE 1% (10MG/ML) FOR IV START INTRADERMA ONE (07:45)
[2020-08-19 07:46] VITALS: TEMP 97
[2020-08-19] MEDS ORDERED: SUCCINYLCHOLINE CHLORIDE 100 MG/5 ML SYR IV ONE (07:53)
[2020-08-19] MEDS ORDERED: fentaNYL (PF) 50 MCG/ML 2 ML AMP ONE (07:53)
[2020-08-19] MEDS ORDERED: NEOSTIGMINE 1 MG/ML 10 ML VIAL ONE (07:53)
[2020-08-19] MEDS ORDERED: ROCURONIUM 10 MG/ML (10 ML VIAL) IV ONE (07:53)
[2020-08-19] MEDS ORDERED: ePHEDrine SULFATE/0.9% NACL/PF 50 MG/5 ML SYRINGE IV ONE (07:53)
[2020-08-19] MEDS ORDERED: GLYCOPYRROLATE 0.2 MG/ML 2 ML VIAL ONE (07:53)
[2020-08-19] MEDS ORDERED: PHENYLEPHRINE-0.9% NACL SYG 1 MG/10 ML SYRINGE ONE (07:53)
[2020-08-19] MEDS ORDERED: PROPOFOL 10 MG/ML 20 ML VIAL IV ONE (07:53)
[2020-08-19] MEDS ORDERED: LIDOCAINE 1% INJ 10MG/ML (20 ML MDV) ONE (07:53)
[2020-08-19] MEDS ORDERED: MIDAZOLAM 2 MG/2 ML VIAL ONE (07:53)
[2020-08-19] MEDS ORDERED: IOPAMIDOL-370 50ML BTL IRRIGATION ONE (09:00)
[2020-08-19] MEDS ORDERED: LACTATED RINGERS 1,000 ML IV ONE (09:40)
--- NOTE | 2020-08-19 10:23 | P.OP ---
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 He underwent an office cystoscopy demonstrated evidence of large bladder tumor. Discussed with him the option of doing a TURBT. Discussed with him the risk which includes but not limited to bleeding, infection, bladder perforation, injury to the ureter. I also discussed with him given his pulmonary status and oxygen requirement, he is an increased risk of respiratory complication, which includes but not limited to prolonged intubation, pneumonia and even . He understood all the risk and agreed to proceed Operative Findings: large tumor involving the right lateral wall, tumor within a small diverticulum, multiple small tumors throughout the lateral wall within a diverticulum. Erythema involving the right distal ureter, similar finding was found at the UPJ. Description of Procedure: Patient was brought to the operating room, general anesthesia was induced. He was prepped and draped in sterile fashion and placed in dorsal lithotomy position. Resectoscope fitted with 25 sheath was inserted per urethra, cystoscopy was performed which showed a large bladder tumor within a diverticulum, multiple small papillary tumor throughout the right lateral wall, multiple tumors were within smaller diverticulum. Using the resectoscope the tumor was resected down given the tumor location within a diverticulum caution was taken down when he comes to resecting to avoid perforation. The total area of resection was approximately 8 cm. Hemostasis was achieved using cautery. Tumor chips were removed and sent to pathology. Repeat cystoscopy showed no evidence of bleeding or any additional tumors, all visible tumor was resected down. Attention was carried to the right kidney. A cystoscope fitted with 22-Bruneian sheath was inserted per urethra, the right ureteral orifice was intubated with a 6-Bruneian open-ended catheter, retrograde pyelogram was performed which showed narrowing along the UPJ, no filling defects were appreciated. At this time a sensor wire was advanced through the catheter and up into the kidney. Next a flexible ureteroscope was passed over the wire and into the kidney, renoscopy was performed showed no abnormality within the kidney, of note within the UPJ there is erythematous area, CIS could not be ruled out. Given this finding renal cytology was obtained from that area. Pu llback ureteroscopy was performed which showed similar finding and the distal ureter, ureteral washing was obtained at that site to. At this time the ureteroscope was withdrawn and the cystoscope was reinserted, left ureteral orifice was intubated with a 5-Bruneian open-ended catheter, retrograde Polygram was performed on the left which showed no filling defect or hydronephrosis. Repeat cystoscopy showed no evidence of bleeding. A 22-Bruneian catheter was placed into the bladder and irrigated to clear. The patient was awakened from anesthesia and taken recovery in stable condition
--- NOTE | 2020-08-19 10:31 | FL ---
EXAMINATION TYPE: FL urography retrograde DATE OF EXAM: 08/19/2020 COMPARISON: NONE HISTORY: history of bladder cancer TECHNIQUE: Fluoroscopy. FINDINGS: history of bladder cancer. Dr Pina. 1 min 46 sec fl time. IMPRESSION: As Above.
[2020-08-19 10:53] VITALS: RESP 18
[2020-08-19] MEDS ORDERED: KETOROLAC 15 MG/ML 1 ML VIAL ONE (11:49)
[2020-08-19] MEDS ORDERED: KETOROLAC 15 MG/ML 1 ML VIAL IVP ONE (11:53)
[2020-08-19 12:17] VITALS: BP 118/76; PULSE 74
== END 2020-08-19 12:42 | disposition home or self-care (01) ==
LOC: OR 07:11
PROVIDERS: ATTEND Urology
DX: C67.2 Malignant neoplasm of lateral wall of bladder (principal); I10 Essential (primary) hypertension; E78.5 Hyperlipidemia, unspecified; J44.9 Chronic obstructive pulmonary disease, unspecified; K76.9 Liver disease, unspecified; M19.90 Unspecified osteoarthritis, unspecified site; M06.9 Rheumatoid arthritis, unspecified; E07.9 Disorder of thyroid, unspecified; K58.1 Irritable bowel syndrome with constipation; F32.9 Major depressive disorder, single episode, unspecified; F41.9 Anxiety disorder, unspecified; F43.10 Post-traumatic stress disorder, unspecified; Z79.51 Long term (current) use of inhaled steroids; Z79.899 Other long term (current) drug therapy; Z79.890 Hormone replacement therapy; Z88.2 Allergy status to sulfonamides; Z88.1 Allergy status to other antibiotic agents; Z91.041 Radiographic dye allergy status; Z91.013 Allergy to seafood; Z99.81 Dependence on supplemental oxygen; Z87.442 Personal history of urinary calculi; Z86.19 Personal history of other infectious and parasitic diseases; Z98.890 Other specified postprocedural states; Z87.891 Personal history of nicotine dependence
CPT/HCPCS: 52240; 88108; 88305; 88307; 74420; C1758; C1769; J2250; J1100; J2710; J0690; J2405; J2001; J3010; J1885; J2370; J0330; J2704; Q9967

== ENCOUNTER → 2020-11-19 | Outpatient (CLI) | payer OTHER, MEDICARE | END | disposition home or self-care (01) | LOC: LABWHC1 12:42 | PROVIDERS: ATTEND Urology | DX: C67.9 Malignant neoplasm of bladder, unspecified (principal) | CPT/HCPCS: 36415; 82378; 86304 ==